=== PATIENT | male | born 1975 | race Caucasian/White ===

== ENCOUNTER 2021-12-31 08:17 | Inpatient (IN) | payer OTHER ==
[2021-12-31] MEDS ORDERED: NITROGLYCERIN SL TABS 0.4 MG TAB SUBLINGUAL STA ×3 (08:40)
[2021-12-31] MEDS ORDERED: ASPIRIN 81 MG PO STA (08:40)
[2021-12-31] MEDS ORDERED: LORazepam 2 MG/ML INJ IV STA (08:41)
--- NOTE | 2021-12-31 08:45 | ED ---
General Adult HPI - General Chief complaint: Chest Pain Stated complaint: Chest discomfort Time Seen by Provider: 12/31/21 08:33 Source: patient, RN notes reviewed Mode of arrival: wheelchair Limitations: no limitations - History of Present Illness Initial comments: Patient is a pleasant 46-year-old male presenting to the emergency department chest discomfort. Onset of symptoms was around a week ago. Patient has had some mild symptoms currently rated 3 or 4/10. Discomfort feels mostly like pressure however has had some mild indigestion earlier. Patient states symptoms are causing anxiety. No associated dyspnea. No diaphoresis. No nausea vom iting. No history of similar symptoms previously. Patient's father does have history of heart disease however was not at a young age. Patient does have history of [place] HFR. Patient takes aspirin and folic acid for this. No calf pain or leg swelling. No radiation of symptoms. - Related Data Home Medications Medication Instructions Recorded Confirmed Aspirin EC [Ecotrin Low Dose] 162 mg PO DAILY 12/31/21 12/31/21 Folic Acid 0.8 mg PO DAILY 12/31/21 12/31/21 Allergies Allergy/AdvReac Type Severity Reaction Status Date / Time Penicillins Allergy Unknown Verified 12/31/21 09:26 Childhood Review of Systems ROS Statement: Those systems with pertinent positive or pertinent negative responses have been documented in the HPI. ROS Other: All systems not noted in ROS Statement are negative. Constitutional: Denies: fever Eyes: Denies: eye pain ENT: Denies: ear pain Respiratory: Denies: cough Cardiovascular: Reports: as per HPI, chest pain Endocrine: Denies: fatigue Gastrointestinal: Denies: abdominal pain Genitourinary: Denies: dysuria Musculoskeletal: Denies: back pain Skin: Denies: rash Neurological: Denies: weakness Past Medical History Past Medical History: No Reported History History of Any Multi-Drug Resistant Organisms: None Reported Past Surgical History: No Surgical Hx Reported Past Psychological History: No Psychological Hx Reported Smoking Status: Current some day smoker Past Alcohol Use History: Occasional Past Drug Use History: Marijuana General Exam Limitations: no limitations General appearance: alert, in no apparent distress Head exam: Present: normocephalic Eye exam: Present: normal appearance Neck exam: Present: normal inspection Respiratory exam: Present: normal lung sounds bilaterally. Absent: chest wall tenderness Cardiovascular Exam: Present: regular rate, normal rhythm Expanded Peripheral pulses: 2+: Radial (R), Radial (L), Posterior Tibialis (R), Posterior Tibialis (L) GI/Abdominal exam: Present: soft. Absent: tenderness Extremities exam: Present: normal inspection. Absent: pedal edema, calf tenderness Neurological exam: Present: alert Psychiatric exam: Present: normal affect, normal mood Skin exam: Present: normal color Course Vital Signs 12/31/21 12/31/21 12/31/21 08:20 08:54 09:36 Temperature 98.6 F Pulse Rate 87 96 87 Respiratory 18 18 18 Rate Blood Pressure 251/144 188/124 185/122 O2 Sat by Pulse 99 96 99 Oximetry - Reevaluation(s) Reevaluation #1: 12/31/21 09:57 Patient reevaluated and resting comfortably in bed, symptoms minimal at this time. Patient and family updated on results and plan. Blood pressure has slightly improved but will need further management. Case discussed with cardiology, Dr. Gibbons. [facility] physician group has been paged for admission. 12/31/21 09:59 Case was discussed with Dr. Dykes, who will admit EKG Findings - EKG Comments: EKG Findings:: Normal sinus rhythm with a rate of 90. NC 170. QRS 76. QT 338. QTC 413. Normal axis. Q waves V1 and V2. No acute ST change. Medical Decision Making - Lab Data Result diagrams: 12/31/21 08:45 12/31/21 08:45 Lab Results 12/31/21 12/31/21 12/31/21 Range/Units 08:45 08:45 08:45 WBC 7.4 (3.8-10.6) k/uL RBC 5.35 (4.30-5.90) m/uL Hgb 16.6 (13.0-17.5) gm/dL Hct 48.2 (39.0-53.0) % MCV 90.0 (80.0-100.0) fL MCH 31.1 (25.0-35.0) pg MCHC 34.6 (31.0-37.0) g/dL RDW 13.9 (11.5-15.5) % Plt Count 148 L (150-450) k/uL MPV 8.5 Neutrophils % 76 % Lymphocytes % 15 % Monocytes % 5 % Eosinophils % 2 % Basophils % 0 % Neutrophils # 5.6 (1.3-7.7) k/uL Lymphocytes # 1.1 (1.0-4.8) k/uL Monocytes # 0.4 (0-1.0) k/uL Eosinophils # 0.1 (0-0.7) k/uL Basophils # 0.0 (0-0.2) k/uL PT 10.7 (9.0-12.0) sec INR 1.0 (<1.2) APTT 25.1 (22.0-30.0) sec Sodium 139 (137-145) mmol/L Potassium 4.2 (3.5-5.1) mmol/L Chloride 107 (98-107) mmol/L Carbon Dioxide 24 (22-30) mmol/L Anion Gap 8 mmol/L BUN 17 (9-20) mg/dL Creatinine 1.04 (0.66-1.25) mg/dL Est GFR (CKD-EPI)AfAm >90 (>60 ml/min/1.73 sqM) Est GFR (CKD-EPI)NonAf 87 (>60 ml/min/1.73 sqM) Glucose 110 H (74-99) mg/dL Calcium 9.3 (8.4-10.2) mg/dL Magnesium 2.0 (1.6-2.3) mg/dL Total Bilirubin 0.7 (0.2-1.3) mg/dL AST 41 (17-59) U/L ALT 35 (4-49) U/L Alkaline Phosphatase 69 (38-126) U/L Troponin I (0.000-0.034) ng/mL Total Protein 8.0 (6.3-8.2) g/dL Albumin 4.8 (3.5-5.0) g/dL 12/31/21 Range/Units 08:45 WBC (3.8-10.6) k/uL RBC (4.30-5.90) m/uL Hgb (13.0-17.5) gm/dL Hct (39.0-53.0) % MCV (80.0-100.0) fL MCH (25.0-35.0) pg MCHC (31.0-37.0) g/dL RDW (11.5-15.5) % Plt Count (150-450) k/uL MPV Neutrophils % % Lymphocytes % % Monocytes % % Eosinophils % % Basophils % % Neutrophils # (1.3-7.7) k/uL Lymphocytes # (1.0-4.8) k/uL Monocytes # (0-1.0) k/uL Eosinophils # (0-0.7) k/uL Basophils # (0-0.2) k/uL PT (9.0-12.0) sec INR (<1.2) APTT (22.0-30.0) sec Sodium (137-145) mmol/L Potassium (3.5-5.1) mmol/L Chloride (98-107) mmol/L Carbon Dioxide (22-30) mmol/L Anion Gap mmol/L BUN (9-20) mg/dL Creatinine (0.66-1.25) mg/dL Est GFR (CKD-EPI)AfAm (>60 ml/min/1.73 sqM) Est GFR (CKD-EPI)NonAf (>60 ml/min/1.73 sqM) Glucose (74-99) mg/dL Calcium (8.4-10.2) mg/dL Magnesium (1.6-2.3) mg/dL Total Bilirubin (0.2-1.3) mg/dL AST (17-59) U/L ALT (4-49) U/L Alkaline Phosphatase (38-126) U/L Troponin I 0.524 H* (0.000-0.034) ng/mL Total Protein (6.3-8.2) g/dL Albumin (3.5-5.0) g/dL - Radiology Data Radiology results: report reviewed (Computed tomography scan of the chest reveals no acute airmail) Critical Care Time Critical Care Time: Yes Total Critical Care Time: 33 Disposition Clinical Impression: Acute non-ST elevation myocardial infarction (NSTEMI), Hypertensive emergency Disposition: ADMITTED IP TO THIS HOSP Condition: Serious Is patient prescribed a controlled substance at d/c from ED?: No Referrals: None,Stated [Primary Care Provider] - 1-2 days Decision Time: 09:58
[2021-12-31 09:09] LABS: Basophils % (A) 0 %; Eosinophils # (A) 0.1 k/uL (0-0.7); Eosinophils % (A) 2 %; HCT 48.2 % (39.0-53.0); HGB 16.6 gm/dL (13.0-17.5); Lymphocytes # (A) 1.1 k/uL (1.0-4.8); Lymphocytes % (A) 15 %; MCH 31.1 pg (25.0-35.0); MCHC 34.6 g/dL (31.0-37.0); Mean Platelet Volume 8.5; Monocytes # (A) 0.4 k/uL (0-1.0); Monocytes % (A) 5 %; Neutrophils # (A) 5.6 k/uL (1.3-7.7); Neutrophils % (A) 76 %; Platelet Count 148 k/uL (150-450); RBC 5.35 m/uL (4.30-5.90); RDW 13.9 % (11.5-15.5); WBC 7.4 k/uL (3.8-10.6)
--- NOTE | 2021-12-31 09:16 | CT ---
EXAMINATION TYPE: CT angio chest DATE OF EXAM: 12/31/2021 COMPARISON: None HISTORY: chest discomfort CT DLP: 561 mGycm CONTRAST: CT chest with contrast and 3D reconstruction with MIP imaging is performed with IV Contrast, patient injected with 80 mL of Isovue 370. Contrast-enhanced CT of the chest was performed through the course of the pulmonary arteries with merly g and mediastinal window settings submitted. 3D reconstruction with MIP imaging was also performed. PULMONARY ARTERIES: The pulmonary arteries and their major tributaries are patent. I do not see taj dence for sizable filling defect to suggest pulmonary embolic process. LUNGS: The lungs are clear and free of infiltrate. No evidence for atelectasis. No pulmonary nodule or mass is detected. No pleural effusion. MEDIASTINUM: Thoracic aorta is of normal caliber,however, evaluation is limited given timing of the contrast bolus. If there is concern for thoracic aortic pathology consider SUSIE. Correlate clinicall y . The heart is not enlarged. No evidence for mediastinal mass. No mediastinal lymph nodes greater than 1cm. HILAR STRUCTURES: No evidence for mass. No hilar lymph nodes greater than 1 cm. UPPER ABDOMEN: No significant abnormality is seen. IMPRESSION: 1. No evidence for Pulmonary embolism at this time.
[2021-12-31 09:18] LABS: Partial Thromboplastin Time 25.1 sec (22.0-30.0); Prothrombin Time 10.7 sec (9.0-12.0)
[2021-12-31 09:23] LABS: ALT 35 U/L (4-49); AST 41 U/L (17-59); African American GFR (CKD) >90 (>60 ml/min/1.73 sqM); Albumin 4.8 g/dL (3.5-5.0); Alkaline Phosphatase 69 U/L (38-126); Anion Gap 8 mmol/L; Blood Urea Nitrogen 17 mg/dL (9-20); Calcium 9.3 mg/dL (8.4-10.2); Carbon Dioxide 24 mmol/L (22-30); Chloride 107 mmol/L (98-107); Glucose 110 mg/dL (74-99); Non-African American GFR(CKD) 87 (>60 ml/min/1.73 sqM); Potassium 4.2 mmol/L (3.5-5.1); Sodium 139 mmol/L (137-145); Total Bilirubin 0.7 mg/dL (0.2-1.3)
[2021-12-31] MEDS ORDERED: LABETALOL 5 MG/ML VIAL MDV IVP STA (09:40)
[2021-12-31] MEDS ORDERED: NITROGLYCERIN OINT 1 INCH/GM PACKET TOPICAL STA (09:41)
[2021-12-31] MEDS ORDERED: HEPARIN SODIUM 1,000 UN/ML (10ML VL) IV PRN (09:53)
[2021-12-31] MEDS ORDERED: HEPARIN SODIUM 1,000 UN/ML (10ML VL) IV ONE (09:53)
[2021-12-31] MEDS ORDERED: NITROGLYCERIN SL TABS 0.4 MG TAB SUBLINGUAL PRN (10:00)
[2021-12-31] MEDS: HEPARIN SOD,PORK IN 0.45% NACL 25,000 UNIT in 0.45% NACL 1 250ML.BAG IV SCH (10:12)
[2021-12-31] MEDS: SODIUM CHLORIDE 0.9% 1,000 ML IV SCH ×2 (10:19→22:51)
[2021-12-31] MEDS: carvediloL 12.5 MG TAB PO SCH ×2 (10:25→23:01)
[2021-12-31] MEDS: lisinopriL 10 MG TAB PO SCH (10:25)
--- NOTE | 2021-12-31 12:05 | P.HPIM ---
History of Present Illness H&P Date: 12/31/21 Chief Complaint: chest pain 46 year old man with likely undiagnosed HTN, current cigar smoker, alcohol abuse, who does not follow with physician, and with FHx of CAD presented with chest pressure. He says symptoms started 7 days ago with tingling in his chest, and these symptoms progressed gradually over the last week. He notes that his birthday was two days ago and he and his friends had a heavy night of drinking over both days of the weekend. This morning he notes that the symptoms in the chest have become very prominent and will not go away, describing them as an intense burning. They are sometimes made worse by head movements. He has stopped working out over the last week due to these symptoms. He denies f/c, n/v/c/d, abd pain, palps, syncope, dysuria, dyschezia, numbness/weakness, dyspnea, orthopnea, LE edema, angina. In the ER he is noted to be in hypertensive urgency with pressures peaking at 241/141, this came down with IV labetalol, nitro sublingual. CBC is unremarkable but for a borderline low PLT count. Chemistries/LFTs/Coags are unremarkable. Troponin initial was 0.524. EKG demonstrates NSR with TWI in inferior leads. Chest CTA was negative for PE. Review of Systems All Systems reviewed and pertinent positives and negatives noted in HPI, all other symptoms are negative Past Medical History Past Medical History: No Reported History History of Any Multi-Drug Resistant Organisms: None Reported Past Surgical History: No Surgical Hx Reported Past Psychological History: No Psychological Hx Reported Smoking Status: Current some day smoker Past Alcohol Use History: Occasional Past Drug Use History: Marijuana Medications and Allergies Home Medications Medication Instructions Recorded Confirmed Type Aspirin EC [Ecotrin Low Dose] 162 mg PO DAILY 12/31/21 12/31/21 History Folic Acid 0.8 mg PO DAILY 12/31/21 12/31/21 History Allergies Allergy/AdvReac Type Severity Reaction Status Date / Time Penicillins Allergy Unknown Verified 12/31/21 09:26 Childhood Physical Exam Osteopathic Statement: *. No significant issues noted on an osteopathic structural exam other than those noted in the History and Physical/Consult. Vitals: Vital Signs Temp Pulse Resp BP Pulse Ox 12/31/21 11:11 75 20 145/100 95 02/07/22 10:14 74 20 180/116 96 12/31/21 09:36 87 18 185/122 99 12/31/21 08:54 96 18 188/124 96 12/31/21 08:20 98.6 F 87 18 251/144 99 Intake and Output 12/30/21 12/31/21 12/31/21 22:59 06:59 14:59 Other: Weight 102.058 kg Gen: awake, alert HEENT: normocephalic, atraumatic, good hearing acuity, moist mucous membranes Resp: good air exchange, breathing comfortably with no accessory muscle use, clear to auscultation bilaterally CVS: good distal perfusion x 4, regular rate and rhythm, positive S4 GI: soft, NTTP, ND, : no SPT, no CVAT, corrales catheter not present MSK: no pitting edema, no clubbing Neuro: non-focal, moving all extremities Psych: cooperative, euthymic mood Results CBC & Chem 7: 12/31/21 08:45 12/31/21 08:45 Labs: Abnormal Lab Results - Last 24 Hours (Table) 12/31/21 12/31/21 12/31/21 Range/Units 08:45 08:45 08:45 Plt Count 148 L (150-450) k/uL Glucose 110 H (74-99) mg/dL Troponin I 0.524 H* (0.000-0.034) ng/mL Assessment and Plan Assessment: Hypertensive urgency Elevated troponin Chest pain -Admit to inpatient, telemetry -Cardiology consult -Aspirin, statin -Heparin drip -Started on Coreg, lisinopril -Nitro when necessary -Hydralazine when necessary for blood pressure -Nothing by mouth midnight for likely heart catheterization -Trend troponins -Echocardiogram MTHFR Carrier ETOH Abuse Nicotine Use -Doubled home aspirin dose from 162-325 -Continue home folic acid -EtOH cessation counseling -Nicotine cessation counseling -Offer nicotine patch if requested Patient is a full code DVT prophylaxis covered with therapeutic heparin
--- NOTE | 2021-12-31 12:14 | P.CRDCN ---
History of Present Illness History of present illness: HISTORY OF PRESENTING ILLNESS This is a pleasant 46-year-old male with with past medical history of MTHFR. 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 We have been asked to see in consultation f or chest pain. Patient presents emergency department with left-sided chest discomfort for about one week. Patient describes the discomfort as heaviness. Located in the left side of his chest. It is nonradiating. He has it with activity and at rest. It is not specifically exertional. Over the past week she's been noticing his chest pain increasing in frequency. It is constant. Associated symptoms include shortness of breath and palpitations. He does endorse some diaphoresis but was not sure if this was related to his chest pain. He states he felt as if his heart was beating out of his chest. He did have some aggravating pain with movement. He denies any specific alleviating factors. He denies nausea, vomiting, diaphoresis, lightheadedness, dizziness, syncope or near syncope. He denies any symptoms of orthopnea or PND. He denies any history of NC, stroke, CAD, diabetes, hyperlipidemia. He states he has been told he had high blood pressure in the past but was not on any medications. He does not regularly check his blood pressure at home. He does not follow with a primary care provider. She denies any cigarette smoking. He does occasionally smoke cigars. He does drink alcohol sometimes 2-3 daily. He does occasionally smoke marijuana. Family history includes his father had an NC in his 60s with stent placement. On admission patient's blood pressure was significantly elevated to 251/144, heart rate in the 80s DIAGNOSTICS EKG reveals sinus rhythm, heart rate 90, T wave inversions in lead III, no acute ST-T wave abnormalities Telemetry tracings indicate sinus mechanism, heart rate 70s90s. Chest CT revealed no evidence of pulmonary embolism Laboratory reviewed, initial troponin 0.52, sodium 139, potassium 4.2, BUN 17, serum creatinine 1.0 WBC 7.4, hemoglobin 16.6, platelets 148, Current home medications include folic acid 0.8 mg daily, aspirin 162 mg daily. REVIEW OF SYSTEMS At the time of my exam: CONSTITUTIONAL: Denies fever or chills. CARDIOVASCULAR: Reports chest pain, shortness of breath, denies orthopnea, PND or palpitations. RESPIRATORY: Denies cough. GASTROINTESTINAL: Denies abdominal pain, diarrhea, constipation, nausea or vomiting. MUSCULOSKELETAL: Denies myalgias. NEUROLOGIC: Denies numbness, tingling, headache or weakness. ENDOCRINE: Denies fatigue, weight change, polydipsia or polyurina. GENITOURINARY: Denies burning, hematuria or urgency with micturation. HEMATOLOGIC: Denies history of anemia or bleeding. PHYSICAL EXAMINATION Blood pressure 180/116, heart rate 74, afebrile, saturations 96% on room air CONSTITUTIONAL: No apparent distress. HEENT: Head is normocephalic. Pupils are equal, round. Sclerae anicteric. Mucous membranes of the mouth are moist. No JVD. No carotid bruit. CHEST EXAMINATION: Lungs are clear to auscultation. No chest wall tenderness is noted on palpation or with deep breathing. HEART EXAMINATION: Regular rate and rhythm. S1, S2 heard. No murmurs, gallops or rub. ABDOMEN: Soft, nontender. Positive bowel sounds. EXTREMITIES: 2+ peripheral pulses, no lower extremity edema and no calf tenderness. SKIN: Warm, dry NEUROLOGIC EXAMINATION: Patient is awake, alert and oriented x3. ASSESSMENT Chest pain, elevated troponin, rule out NSTEMI Hypertensive Emergency History of MTHFR PLAN Trend troponins Repeat EKG Keep NPO Obtain 2D echocardiogram and doppler study to assess cardiac structure and function. Continue aspirin, statin Continue IV heparin drip Lisinopril 10mg daily and carvedilol 12.5 mg twice a day was started Lipid Panel Continue cardiac telemetry Smoking cessation discussed and highly recommended. Further recommendations based on clinical course Thank you kindly for this consultation. Nurse practitioner note has been reviewed by physician. Signing provider agrees with the documented findings, assessment, and plan of care. Past Medical History Past Medical History: No Reported History History of Any Multi-Drug Resistant Organisms: None Reported Past Surgical History: No Surgical Hx Reported Past Psychological History: No Psychological Hx Reported Smoking Status: Current some day smoker Past Alcohol Use History: Occasional Past Drug Use History: Marijuana Medications and Allergies Home Medications Medication Instructions Recorded Confirmed Type Aspirin EC [Ecotrin Low Dose] 162 mg PO DAILY 12/31/21 12/31/21 History Folic Acid 0.8 mg PO DAILY 12/31/21 12/31/21 History Allergies Allergy/AdvReac Type Severity Reaction Status Date / Time Penicillins Allergy Unknown Verified 12/31/21 09:26 Childhood Physical Exam Vitals: Vital Signs Temp Pulse Resp BP Pulse Ox 12/31/21 10:14 74 20 180/116 96 12/31/21 09:36 87 18 185/122 99 12/31/21 08:54 96 18 188/124 96 12/31/21 08:20 98.6 F 87 18 251/144 99 Intake and Output 12/30/21 12/31/21 12/31/21 22:59 06:59 14:59 Other: Weight 102.058 kg Results 12/31/21 08:45 12/31/21 08:45 Cardiac Enzymes 12/31/21 12/31/21 Range/Units 08:45 08:45 AST 41 (17-59) U/L Troponin I 0.524 H* (0.000-0.034) ng/mL Coagulation 12/31/21 Range/Units 08:45 PT 10.7 (9.0-12.0) sec APTT 25.1 (22.0-30.0) sec CBC 12/31/21 Range/Units 08:45 WBC 7.4 (3.8-10.6) k/uL RBC 5.35 (4.30-5.90) m/uL Hgb 16.6 (13.0-17.5) gm/dL Hct 48.2 (39.0-53.0) % Plt Count 148 L (150-450) k/uL Comprehensive Metabolic Panel 12/31/21 Range/Units 08:45 Sodium 139 (137-145) mmol/L Potassium 4.2 (3.5-5.1) mmol/L Chloride 107 (98-107) mmol/L Carbon Dioxide 24 (22-30) mmol/L BUN 17 (9-20) mg/dL Creatinine 1.04 (0.66-1.25) mg/dL Glucose 110 H (74-99) mg/dL Calcium 9.3 (8.4-10.2) mg/dL AST 41 (17-59) U/L ALT 35 (4-49) U/L Alkaline Phosphatase 69 (38-126) U/L Total Protein 8.0 (6.3-8.2) g/dL Albumin 4.8 (3.5-5.0) g/dL Current Medications Generic Name Dose Route Start Last Admin Trade Name Freq PRN Reason Stop Dose Admin Aspirin 81 mg 01/01/22 09:00 Aspirin 81 Mg PO DAILY [facility] Atorvastatin Calcium 80 mg 12/31/21 21:00 Atorvastatin 80 Mg Tab PO HS [facility] Carvedilol 12.5 mg 12/31/21 10:15 12/31/21 10:25 Carvedilol 12.5 Mg Tab PO 12.5 mg AC-BID ENRIQUE Administration Folic Acid 1 mg 01/01/22 09:00 Folic Acid 1 Mg Tab PO DAILY [facility] Heparin Sodium (Porcine) 0 unit 12/31/21 09:53 Heparin Sodium 1,000 Un/Ml (10ml Vl) IV PER PROTOCOL PRN Low PTT Protocol Hydralazine HCl 25 mg 12/31/21 10:02 Hydralazine Hcl 25 Mg Tab PO QID PRN Blood Pressure - High Heparin Sodium/Sodium Chloride 250 mls @ 10.002 mls/hr 12/31/21 10:00 12/31/21 10:12 25,000 unit/ Sodium Chloride IV 9.8 units/kg/hr .Q24H ENRIQUE 10.002 mls/hr Administration Protocol 9.8 UNITS/KG/HR Sodium Chloride 1,000 mls @ 100 mls/hr 12/31/21 10:00 12/31/21 10:19 Saline 0.9% IV 100 mls/hr .Q10H ENRIQUE Administration Lisinopril 10 mg 12/31/21 10:15 12/31/21 10:25 Lisinopril 10 Mg Tab PO 10 mg DAILY ENRIQUE Administration Nitroglycerin 0.4 mg 12/31/21 10:00 Nitroglycerin Sl Tabs 0.4 Mg Tab SUBLINGUAL Q5M PRN Chest Pain Intake and Output 12/30/21 12/31/21 12/31/21 22:59 06:59 14:59 Other: Weight 102.058 kg Patient Weight 01/01/22 06:59 Weight 102.058 kg 12/31/21 08:45 12/31/21 08:45
[2021-12-31] MEDS: hydrALAZINE HCL 25 MG TAB PO PRN (12:55)
[2021-12-31] MEDS ORDERED: ALPRAZolam 0.25 MG TAB PO PRN (13:43)
[2021-12-31] MEDS: SODIUM CHLORIDE 0.9% 1,000 ML in EMPTY BAG 1 BAG IV SCH (23:01)
[2021-12-31] MEDS: ATORVASTATIN 80 MG TAB PO SCH (23:01)
[2022-01-01] MEDS: HEPARIN SOD,PORK IN 0.45% NACL 25,000 UNIT in 0.45% NACL 1 250ML.BAG IV SCH (02:50)
[2022-01-01 05:58] LABS: Glucose,Whole Blood 108 mg/dL (75-99)
[2022-01-01] MEDS: carvediloL 12.5 MG TAB PO SCH ×2 (05:58→17:11)
[2022-01-01] MEDS: FOLIC ACID 1 MG TAB PO SCH (05:58)
[2022-01-01] MEDS: lisinopriL 10 MG TAB PO SCH (05:58)
[2022-01-01] MEDS: SODIUM CHLORIDE 0.9% 1,000 ML IV SCH ×2 (05:58→16:19)
[2022-01-01] MEDS ORDERED: HEPARIN SODIUM,PORCINE 10,000 UNIT in SODIUM CHLORIDE 0.9% 1,000 ML IRRIGATION PRN (07:00)
[2022-01-01] MEDS ORDERED: HEPARIN SODIUM,PORCINE 2,500 UNIT in SODIUM CHLORIDE 0.9% 250 ML IRRIGATION PRN (07:00)
[2022-01-01 08:31] LABS: African American GFR (CKD) >90 (>60 ml/min/1.73 sqM); Anion Gap 5 mmol/L; Blood Urea Nitrogen 13 mg/dL (9-20); Calcium 8.7 mg/dL (8.4-10.2); Carbon Dioxide 24 mmol/L (22-30); Chloride 109 mmol/L (98-107); Glucose 103 mg/dL (74-99); Magnesium 2.1 mg/dL (1.6-2.3); Non-African American GFR(CKD) >90 (>60 ml/min/1.73 sqM); Potassium 4.1 mmol/L (3.5-5.1); Sodium 138 mmol/L (137-145)
[2022-01-01 08:34] LABS: Basophils % (A) 0 %; Eosinophils # (A) 0.1 k/uL (0-0.7); Eosinophils % (A) 2 %; HCT 43.9 % (39.0-53.0); HGB 15.2 gm/dL (13.0-17.5); Lymphocytes # (A) 1.1 k/uL (1.0-4.8); Lymphocytes % (A) 18 %; MCH 31.1 pg (25.0-35.0); MCHC 34.6 g/dL (31.0-37.0); MCV 90.1 fL (80.0-100.0); Mean Platelet Volume 8.7; Monocytes # (A) 0.4 k/uL (0-1.0); Monocytes % (A) 6 %; Neutrophils # (A) 4.4 k/uL (1.3-7.7); Neutrophils % (A) 72 %; Platelet Count 130 k/uL (150-450); RBC 4.87 m/uL (4.30-5.90); RDW 13.9 % (11.5-15.5); WBC 6.1 k/uL (3.8-10.6)
[2022-01-01 08:48] LABS: Prothrombin Time 10.9 sec (9.0-12.0)
--- NOTE | 2022-01-01 08:48 | P.PN ---
Subjective Progress Note Date: 01/01/22 Plan is for LHC today. Chest sensation still present, but mildly improved. BPs still high, but improved, will titrate BP meds following LHC. Objective - Vital Signs Vital signs: Vital Signs Temp 98 F 01/01/22 08:00 Pulse 63 01/01/22 08:00 Resp 17 01/01/22 08:00 BP 179/103 01/01/22 08:00 Pulse Ox 97 01/01/22 08:00 Intake & Output 12/31/21 01/01/22 01/01/22 18:59 06:59 18:59 Intake Total 61.846 376.508 Balance 61.846 376.508 Weight 102.058 kg 105.3 kg Intake: Intake, IV Titration 61.846 136.508 Amount Heparin Sod,Pork in 0.45% 61.846 136.508 NaCl 25,000 unit In 0.45 % NaCl 1 250ml.bag @ 9.8 UNITS/KG/HR 10.002 mls/hr IV .Q24H [facility] Rx#: [id number] Oral 240 Other: Voiding Method Toilet # Voids 1 - Exam Gen: awake, alert HEENT: normocephalic, atraumatic, good hearing acuity, moist mucous membranes Resp: good air exchange, breathing comfortably with no accessory muscle use, clear to auscultation bilaterally CVS: good distal perfusion x 4, regular rate and rhythm, positive S4 GI: soft, NTTP, ND, : no SPT, no CVAT, corrales catheter not present MSK: no pitting edema, no clubbing Neuro: non-focal, moving all extremities Psych: cooperative, euthymic mood - Labs CBC & Chem 7: 01/01/22 07:28 01/01/22 07:28 Labs: Abnormal Lab Results - Last 24 Hours (Table) 12/31/21 12/31/21 12/31/21 Range/Units 08:45 08:45 08:45 Plt Count 148 L (150-450) k/uL APTT (22.0-30.0) sec Chloride (98-107) mmol/L Glucose 110 H (74-99) mg/dL POC Glucose (mg/dL) (75-99) mg/dL Troponin I 0.524 H* (0.000-0.034) ng/mL 02/07/22 02/07/22 02/07/22 Range/Units 11:40 15:25 15:25 Plt Count (150-450) k/uL APTT 33.1 H (22.0-30.0) sec Chloride (98-107) mmol/L Glucose (74-99) mg/dL POC Glucose (mg/dL) (75-99) mg/dL Troponin I 0.631 H* 0.587 H* (0.000-0.034) ng/mL 12/31/21 01/01/22 01/01/22 Range/Units 22:17 05:56 07:28 Plt Count (150-450) k/uL APTT 44.7 H (22.0-30.0) sec Chloride 109 H (98-107) mmol/L Glucose 103 H (74-99) mg/dL POC Glucose (mg/dL) 108 H (75-99) mg/dL Troponin I (0.000-0.034) ng/mL 01/01/22 Range/Units 07:28 Plt Count 130 L (150-450) k/uL APTT (22.0-30.0) sec Chloride (98-107) mmol/L Glucose (74-99) mg/dL POC Glucose (mg/dL) (75-99) mg/dL Troponin I (0.000-0.034) ng/mL Assessment and Plan Assessment: Hypertensive urgency Elevated troponin Chest pain -Admit to inpatient, telemetry -Cardiology consult -Aspirin, statin -Heparin drip -Started on Coreg, lisinopril -Nitro when necessary -Hydralazine when necessary for blood pressure -[facility] 12/31, pending results -Trend troponins, peaked at 0.63 -Echocardiogram, pending results MTHFR Carrier ETOH Abuse Nicotine Use -Doubled home aspirin dose from 162-325 -Continue home folic acid -EtOH cessation counseling -Nicotine cessation counseling -Offer nicotine patch if requested Patient is a full code DVT prophylaxis covered with therapeutic heparin
[2022-01-01] MEDS ORDERED: ASPIRIN 81 MG PO SCH ×2 (09:00)
[2022-01-01] MEDS ORDERED: ASPIRIN 325 MG TAB PO SCH ×2 (09:00)
[2022-01-01] MEDS: SODIUM CHLORIDE 0.9% 1,000 ML in EMPTY BAG 1 BAG IV SCH ×4 (09:26→22:02)
[2022-01-01] MEDS: ALPRAZolam 0.5 MG TAB PO PRN ×2 (09:27→22:52)
[2022-01-01 10:32] LABS: Chol/HDL Ratio 4.84 Ratio; LDL Cholesterol,Calculated 83.1 mg/dL (0.0-131.0)
[2022-01-01] MEDS ORDERED: IV FLUID CONTINUATION 400 ML IV ONE (10:43)
--- NOTE | 2022-01-01 10:52 | ECHOF ---
Referral Reason:nstemi, htn MEASUREMENTS -------- HEIGHT: 180.3 cm WEIGHT: 102.1 kg BP: RVIDd: 2.3 cm (< 3.3) IVSd: 1.7 cm (0.6 - 1.1) LVIDd: 3.1 cm (3.9 - 5.3) LVPWd: 1.8 cm (0.6 - 1.1) IVSs: 2.4 cm LVIDs: 1.9 cm LVPWs: 2.3 cm Ao Diam: 3.4 cm (2.0 - 3.7) AV Cusp: 2.2 cm (1.5 - 2.6) LA Diam: 3.6 cm (2.7 - 3.8) MV EXCURSION: 9.371 mm (> 18.000) MV EF SLOPE: 44 mm/s (70 - 150) EPSS: 0.8 cm MV E Albert: 0.66 m/s MV DecT: 232 ms MV A Albert: 0.62 m/s MV E/A Ratio: 1.05 RAP: 5.00 mmHg RVSP: 16.42 mmHg FINDINGS -------- This was a technically good study. The left ventricular size is normal. There is severe concentric left ventricular hypertrophy. Ove rall left ventricular systolic function is normal with, an EF between 55 - 60 %. The diastolic fill ing pattern is normal for the age of the patient {E/E'}. The right ventricle is normal in size. The left atrial size is normal. Normal LA size by volume 22+/-6 ml/m2. The right atrial size is normal. The aortic valve is trileaflet and appears structurally normal. The mitral valve is normal. There is trace mitral regurgitation. The tricuspid valve appears structurally normal. Trace tricuspid regurgitation present. Right clarice tricular systolic pressure is normal at < 35 mmHg. There is no pulmonic regurgitation present. The aortic root size is normal. Normal inferior vena cava with normal inspiratory collapse consistent with estimated right atrial pre ssure of 5 mmHg. There is no pericardial effusion. CONCLUSIONS -------- 1. The left ventricular size is normal. 2. There is severe concentric left ventricular hypertrophy. 3. Overall left ventricular systolic function is normal with, an EF between 55 - 60 %. 4. The diastolic filling pattern is normal for the age of the patient {E/E'} 5. There is trace mitral regurgitation. 6. Trace tricuspid regurgitation present. 7. There is no pericardial effusion. VICE PROVOST: Jennifer Hemphill RDCS
[2022-01-01] MEDS ORDERED: fentaNYL (PF) 50 MCG/ML 2 ML AMP ONE (11:00)
[2022-01-01] MEDS ORDERED: MIDAZOLAM 2 MG/2 ML VIAL IV ONE ×2 (11:18→12:18)
[2022-01-01] MEDS ORDERED: IV FLUID CONTINUATION 500 ML IV ONE (11:20)
[2022-01-01] MEDS ORDERED: LIDOCAINE 1% INJ 10MG/ML (20 ML MDV) SQ ONE (11:22)
[2022-01-01] MEDS: fentaNYL (PF) 50 MCG/ML 2 ML AMP IV ONE ×2 (11:22→12:15)
[2022-01-01] MEDS ORDERED: HEPARIN SODIUM 1,000 UN/ML (10ML VL) ONE (11:24)
[2022-01-01] MEDS ORDERED: VERAPAMIL SYRINGE (5 MG/10 ML) INTRAARTER ONE (11:26)
[2022-01-01] MEDS ORDERED: TICAGRELOR 90 MG TAB ONE (11:41)
[2022-01-01] MEDS ORDERED: TICAGRELOR 90 MG TAB PO ONE (11:42)
[2022-01-01] MEDS: NITROGLYCERIN 1000MCG/10ML SYRINGE INTRACORON ONE ×3 (11:45→12:42)
[2022-01-01] MEDS ORDERED: IOPAMIDOL-370 125ML BTL INJ ONE (12:12)
[2022-01-01] MEDS ORDERED: IOPAMIDOL-370 100ML BTL INJ ONE ×2 (12:41→12:50)
[2022-01-01] MEDS ORDERED: ATROPINE SULFATE 0.1 MG/ML 10ML SYRINGE IV PRN (13:37)
[2022-01-01] MEDS ORDERED: RX INFO: IV CONTRAST WAS GIVEN 1 EACH MISC MISCELLANE PRN (13:37)
[2022-01-01] MEDS ORDERED: MAG HYDROX/AL HYDROX/SIMETH 30 ML CUP PO PRN (13:37)
[2022-01-01] MEDS: hydrALAZINE HCL 25 MG TAB PO PRN (13:41)
[2022-01-01] MEDS ORDERED: lisinopriL 10 MG TAB PO STA (16:56)
[2022-01-01] MEDS: ATORVASTATIN 80 MG TAB PO SCH (19:45)
--- NOTE | 2022-01-01 21:34 | P.PRCINT ---
Percutaneous Coronary Int. - Percutaneous Coronary Intervention Percutaneous Coronary Intervention: PROCEDURES PERFORMED: Left heart catheterization, bilateral coronary angiography, PCI mid LAD with overlapping 2.5 x 8mm Xience AIXA x 2, iFR LAD, PCI mid to distal circumflex with 2.25 x 18mm Xience AIXA, IVUS LAD INDICATION: NSTEMI HISTORY: Patient is a pleasant 46 year old male who presented with chest pain however also noted have extremely elevated blood pressures and NSTEMI. Some of his chest pain appeared atypical and musculoskeletal however given risk factors, left heart catheterization was recommended. CONSENT:I have discussed the risks, benefits and alternative therapies for the above-mentioned procedure and for both sedation/analgesia as well as necessary blood product administration, if indicated, as they pertain to this patient. The patient has indicated understanding and acceptance of the risks and procedures discussed. PROCEDURE: After the risks, benefits and alternatives of the above mentioned procedure explained in detail with the patient, informed consent was obtained. Patient was taken to the catheterization lab and prepped and draped in usual fashion. 1% lidocaine was used to anesthetize the right radial artery. A 6- Georgian sheath was placed in the right radial artery using modified Seldinger technique. Left coronary angiography was performed with a 5-Georgian JL 3.5 catheter and right coronary angiography was performed with a 5-Georgian JR5 catheter in various views. A 5-Georgian FR5 catheter was inserted into the left ventricle and pressure measurements were obtained. The decision was made to performed iFR of the LAD given an eccentric appearing lesion seen to be worst on the [place] views appearing 90% however in other views appearing relatively mild disease. Heparin was given for an ACT > 250. A 6Fr CLS 3.5 catheter was used to engage the left main. A 0.014 pressure wire was advanced into the left main and normalized. It was then advanced 1-2 cm distal to the mid LAD lesion. Initially iFR extremely abnormal at 0.58 with pullback showing majority of pressure difference at a focal napkin ring lesion just proximal to the 1st large septal. There was drift noted however and therefore the wire was renormalized in the left main and iFR was repeated twice more and noted to continue to be abnormal at 0.89 and 0.85 with pressure difference at the focal lesion. IVUS was performed of the LAD which showed diffuse mixed plaque throughout the mid LAD after the moderate caliber diagonal 1 branch til the distal LAD with majority being positive remodeling and a 80% stenosis at the level of the napkin ring lesion. There was diffuse disease noted more proximal to the lesion however nearest somewhat normal segment appeared to be 2.5 x 2.5mm. PCI was performed of the mid LAD lesion with a 2.5 x 8mm Xience AIXA. There was more proximal disease and therefore additional 2.5 x 8mm Xience AIXA was advanced and deployed overlapping more proximal with the 1st stent. IVUS was again performed which showed excellent stent opposition with stent diameter 2.4 x 2.6mm in diameter and no dissection and continued extensive more distal LAD disease. Pre intervention there was 80% LAD stenosis with DUC 3 flow and post intervention there was 0% stenosis and DUC 3 flow. The iFR wire was removed and final angiograms were performed. Next a 0.014 whisper wire was advanced into the distal circumflex. The lesion was predilated serially with a 1.5 x 12mm and then 2.25 x 15mm balloon. Next a 2.25 x 18mm Xience AIXA was placed in the mid circumflex just distal to a moderate caliber OM1 branch. The wire was removed and final angiograms were performed. Pre intervention there were tandem 90% stenoses and DCU 2 flow and post intervention there was < 10% stenosis with DUC 3 flow and no dissection. The right radial sheath was removed and a TR band was placed with hemostasis achieved. The patient tolerated the procedure well. Patient was transported back to the post catheterization holding area in stable condition. Conscious Sedation: Patient was monitored under the direct supervision of vision of myself for conscious sedation using Versed and fentanyl for a total duration of 90 minutes HEMODYNAMICS: Ao: 154/89 LV: 148/4, LVEDP 21 SELECTIVE CORONARY ARTERIOGRAPHY: LEFT MAIN: The left main is a large caliber vessel which bifurcates into the LAD and circumflex. There is no significant stenosis. LEFT ANTERIOR DESCENDING CORONARY ARTERY: LAD is a large caliber vessel which wraps around to the apex. There is a mid LAD 50% stenosis followed by a more focal eccentric 80% mid LAD lesion after the moderate caliber diagonal 1 branch. Diagonal 1 has mild 20-30% stenosis. The mid to distal LAD has diffuse 30-40% stenosis. LEFT CIRCUMFLEX CORONARY ARTERY: Left circumflex is a moderate caliber vessel without significant stenosis. The circumflex gives off a moderate caliber OM1 without significant disease and then has a a long mid to distal circumflex lesion with tandem 90% stenoses which gives rise to 3 small caliber OM branches. RIGHT CORONARY ARTERY: The right coronary artery is a large caliber vessel which gives off a PDA and PLV branch and is the dominant vessel. There is proximal RCA 20% stenosis. There is proximal PLV 30% stenosis and proximal PDA 30-40% stenosis. FINAL IMPRESSION: 1. CAD as described above with mid LAD 80% stenosis, mid circumflex tandem 90% stenoses, mild disease of the RCA. 2. S/p PCI mid LAD with overlapping 2.5 x 8mm Xience AIXA x 2, iFR LAD, PCI mid to distal circumflex with 2.25 x 18mm Xience AIXA 3. Mildly elevated left sided filling pressures PLAN: 1. Aggressive risk factor modification per most recent ACC/AHA guidelines. 2. Continue dual antiplatelets for 12 months.
[2022-01-01 23:50] VITALS: RESP 16
[2022-01-02] MEDS: SODIUM CHLORIDE 0.9% 1,000 ML IV SCH (01:35)
[2022-01-02] MEDS: SODIUM CHLORIDE 0.9% 1,000 ML in EMPTY BAG 1 BAG IV SCH ×2 (06:15→08:15)
[2022-01-02] MEDS: carvediloL 12.5 MG TAB PO SCH (06:26)
[2022-01-02 08:09] LABS: African American GFR (CKD) >90 (>60 ml/min/1.73 sqM); Anion Gap 5 mmol/L; Blood Urea Nitrogen 13 mg/dL (9-20); Carbon Dioxide 25 mmol/L (22-30); Chloride 108 mmol/L (98-107); Glucose 91 mg/dL (74-99); Non-African American GFR(CKD) >90 (>60 ml/min/1.73 sqM); Potassium 4.2 mmol/L (3.5-5.1); Sodium 138 mmol/L (137-145)
[2022-01-02] MEDS: FOLIC ACID 1 MG TAB PO SCH (08:14)
[2022-01-02] MEDS ORDERED: lisinopriL 20 MG TAB PO SCH (09:00)
[2022-01-02] MEDS ORDERED: TICAGRELOR 90 MG TAB PO SCH (09:00)
[2022-01-02] MEDS ORDERED: ASPIRIN 81 MG PO SCH (09:00)
[2022-01-02 10:37] VITALS: BMI 30.6
[2022-01-02 11:40] VITALS: BP 175/112; PULSE 67; TEMP 97.6
[2022-01-02] MEDS ORDERED: lisinopriL 20 MG TAB PO STA (12:02)
--- NOTE | 2022-01-02 14:41 | P.DS ---
Providers Date of admission: 12/31/21 10:02 Expected date of discharge: 01/02/22 Attending physician: Snehal Dykes MD Consults: 12/31/21 10:00 Consult Physician Urgent Consulting Provider: Jovani Gibbons Consult Reason/Comments: nstemi, hypertensive emergency Do you want consulting provider notified?: Already Contacted Primary care physician: Stated None Hospital Course: 46 year old man with likely undiagnosed HTN, current cigar smoker, alcohol abuse, who does not follow with physician, and with FHx of CAD presented with chest pressure. He says symptoms started 7 days ago with tingling in his chest, and these symptoms progressed gradually over the last week. He notes that his birthday was two days ago and he and his friends had a heavy night of drinking over both days of the weekend. This morning he notes that the symptoms in the chest have become very prominent and will not go away, describing them as an intense burning. They are sometimes made worse by head movements. He has stopped working out over the last week due to these symptoms. He denies f/c, n/v/c/d, abd pain, palps, syncope, dysuria, dyschezia, numbness/weakness, dyspnea, orthopnea, LE edema, angina. In the ER he is noted to be in hypertensive urgency with pressures peaking at 241/141, this came down with IV labetalol, nitro sublingual. CBC is unremarkable but for a borderline low PLT count. Chemistries/LFTs/Coags are unremarkable. Troponin initial was 0.524. EKG demonstrates NSR with TWI in inferior leads. Chest CTA was negative for PE. Detailed problem list: Hypertensive urgency -Increase lisinopril to 40 mg daily -Resume Coreg 12.5 twice daily NSTEMI Chest pain -Status post left heart cath December 01 with stent in LAD and one stent on mid and distal circumflex -Dual antiplatelet therapy for 12 months -Beta blockers and high statins Lipitor 80 mg daily on discharge -Patient was cleared for discharge per cardiology -Echocardiogram showed normal left ventricular size is normal. EF 5560 percent MTHFR Carrier ETOH Abuse Nicotine Use -Doubled home aspirin dose from 162-325 -Continue home folic acid -EtOH cessation counseling -Nicotine cessation counseling -Offer nicotine patch if requested Assessment: Gen: awake, alert HEENT: normocephalic, atraumatic, good hearing acuity, moist mucous membranes Resp: good air exchange, breathing comfortably with no accessory muscle use, clear to auscultation bilaterally CVS: good distal perfusion x 4, regular rate and rhythm, positive S4 GI: soft, NTTP, ND, : no SPT, no CVAT, corrales catheter not present MSK: no pitting edema, no clubbing Neuro: non-focal, moving all extremities Psych: cooperative, euthymic mood Patient Condition at Discharge: Stable Plan - Discharge Summary New Discharge Prescriptions: New Ticagrelor [Brilinta] 90 mg PO BID 30 Days #60 tab lisinopriL [Zestril] 40 mg PO DAILY 30 Days #30 tab Aspirin 81 mg PO DAILY 30 Days #30 carvediloL [Coreg*] 12.5 mg PO AC-BID 30 Days #60 tab Atorvastatin [Lipitor] 80 mg PO HS 30 Days #30 tab Continue Folic Acid 0.8 mg PO DAILY Discontinued Aspirin EC [Ecotrin Low Dose] 162 mg PO DAILY Discharge Medication List Folic Acid 0.8 mg PO DAILY 12/31/21 [History] Ticagrelor [Brilinta] 90 mg PO BID 30 Days #60 tab 01/01/22 [Rx] Aspirin 81 mg PO DAILY 30 Days #30 01/02/22 [Rx] Atorvastatin [Lipitor] 80 mg PO HS 30 Days #30 tab 01/02/22 [Rx] carvediloL [Coreg*] 12.5 mg PO AC-BID 30 Days #60 tab 01/02/22 [Rx] lisinopriL [Zestril] 40 mg PO DAILY 30 Days #30 tab 01/02/22 [Rx] Follow up Appointment(s)/Referral(s): Jovani Gibbons DO [STAFF PHYSICIAN] - 01/11/22 3:00 pm Aravind Guevara MD [STAFF PHYSICIAN] - 1 Week (office is closed-please call to set up an appointment) None,Stated [Primary Care Provider] - 1-2 days Patient Instructions/Handouts: Low Fat Diet (DC), Heart Catheterization (DC) Discharge Disposition: HOME SELF-CARE
--- NOTE | 2022-01-02 15:19 | P.PN ---
Subjective This is a pleasant 46-year-old male with with past medical history of MTHFR. 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 We have been asked to see in consultation for chest pain. Patient presents emergency department with left-sided chest heaviness for about one week. EKG reveals sinus rhythm, heart rate 90, T wave inversions in lead III, no acute ST-T wave abnormalities. Troponin 0.52, 0.6, 0.58. Cardiac catheterization was recommended. Patient underwent left heart catheterization with Dr. Gibbons on 01/01/2022 which revealed coronary artery di sease with mid LAD 80% stenosis, mid circumflex tandem 90% stenoses, mild disease of the RCA. Patient underwent successful PCI mid LAD with overlapping 2.5 x 8mm Xience AIXA x 2, iFR LAD, PCI mid to distal circumflex with 2.25 x 18mm Xience AIXA. 01/02/2022 Patient seen and examined at bedside, no distress. He denies any chest pain shortness of breath. He is ambulating without any difficulty. Vital signs are stable. His blood pressure has improved over the past 24 hours. He is maintaining sinus mechanism heart rate 5860s. He's currently maintained on dual antiplatelet therapy with aspirin and Brilinta, he is also maintained on lisinopril 20 mg daily, carvedilol 12.5 mg twice a day, atorvastatin 80 mg daily. Labs, triglycerides 390, cholesterol 203, LDL 83, VLDL 78, HDL 41, TSH within normal limits Echocardiogram revealed EF 5560 percent PHYSICAL EXAMINATION CONSTITUTIONAL: No apparent distress. HEENT: Neck Supple. No JVD. CHEST EXAMINATION: Lungs are clear to auscultation. No chest wall tenderness is noted on palpation or with deep breathing. HEART EXAMINATION: Regular rate and rhythm. S1, S2 heard. No murmurs, gallops or rub. ABDOMEN: Soft, nontender. Positive bowel sounds. EXTREMITIES: 2+ peripheral pulses, no lower extremity edema and no calf tenderness. SKIN: Cath site clean dry intact 2+ pulses NEUROLOGIC EXAMINATION: Patient is awake, alert and oriented x3. ASSESSMENT NSTEMI s/p PCI to mid LAD and mid to distal circumflex 01/01/2022 Dyslipidemia Hypertensive Emergency History of MTHFR PLAN Increase lisinopril 40 mg daily Continue dual antiplatelet therapy with aspirin and Brilinta, he is also maintained on lisinopril 20 mg daily, carvedilol 12.5 mg twice a day, atorvastatin 80 mg daily. Smoking cessation discussed and highly recommended. From cardiology perspective, patient stable for discharge home. Follow up with Dr. Gibbons outpatient. Patient is an appointment on 01/11/2022 at 3 PM Nurse practitioner note has been reviewed by physician. Signing provider agrees with the documented findings, assessment, and plan of care. Objective - Vital Signs Vital signs: Vital Signs Temp 97.7 F 01/02/22 07:52 Pulse 58 L 01/02/22 08:00 Resp 16 01/02/22 08:00 BP 147/90 01/02/22 07:52 Pulse Ox 97 01/02/22 07:52 Intake & Output 01/01/22 01/02/22 01/02/22 18:59 06:59 18:59 Intake Total 1690 240 Balance 1690 240 Weight 105.3 kg Intake: IV 350 Intake, IV Titration 800 Amount Sodium Chloride 0.9% 1, 800 000 ml @ 100 mls/hr IV . Q10H [facility] Rx#:[id number] Oral 540 240 Other: Voiding Method Toilet Toilet Toilet # Voids 2 2 # Bowel Movements 1 - Labs CBC & Chem 7: 01/01/22 07:28 01/02/22 06:30 Labs: Abnormal Lab Results - Last 24 Hours (Table) 01/02/22 Range/Units 06:30 Chloride 108 H (98-107) mmol/L
[2022-01-03] MEDS ORDERED: lisinopriL 20 MG TAB PO SCH (09:00)
== END 2022-01-02 14:09 | disposition home or self-care (01) | DRG 246 ==
LOC: EC 08:17 → 3SCARD 10:02
PROVIDERS: ADMIT Internal Medicine; ATTEND Internal Medicine
PROC: 4A023N7 Measurement of Cardiac Sampling and Pressure, Left Heart, Percutaneous Approach (ICD-10-PCS; principal; 2022-01-01 12:00)
PROC: 4A033BC Measurement of Arterial Pressure, Coronary, Percutaneous Approach (ICD-10-PCS; principal; 2022-01-01 12:00)
PROC: B2111ZZ Fluoroscopy of Multiple Coronary Arteries using Low Osmolar Contrast (ICD-10-PCS; principal; 2022-01-01 12:00)
PROC: B240ZZ3 Ultrasonography of Single Coronary Artery, Intravascular (ICD-10-PCS; principal; 2022-01-01 12:00)
PROC: 027136Z Dilation of Coronary Artery, Two Arteries with Three Drug-eluting Intraluminal Devices, Percutaneous Approach (ICD-10-PCS; principal; 2022-01-01 12:00)
DX: I16.1 Hypertensive emergency (principal); I21.4 Non-ST elevation (NSTEMI) myocardial infarction; E78.5 Hyperlipidemia, unspecified; Z20.822 Contact with and (suspected) exposure to COVID-19; I10 Essential (primary) hypertension; I25.10 Atherosclerotic heart disease of native coronary artery without angina pectoris; F10.10 Alcohol abuse, uncomplicated; F41.9 Anxiety disorder, unspecified; F17.290 Nicotine dependence, other tobacco product, uncomplicated; Z71.6 Tobacco abuse counseling; Z79.82 Long term (current) use of aspirin; Z79.899 Other long term (current) drug therapy; Z14.8 Genetic carrier of other disease; Z71.41 Alcohol abuse counseling and surveillance of alcoholic; Z88.0 Allergy status to penicillin; Z82.49 Family history of ischemic heart disease and other diseases of the circulatory system
CPT/HCPCS: 36415; 71275; 80048; 80053; 80061; 83036; 83735; 84443; 84484; 85025; 85610; 85730; 87635; 92978; 93005; 93306; 93458; 93571; 96374; 96375; 99291

== ENCOUNTER 2022-03-23 06:23 | Observation (INO) | payer OTHER ==
[2022-03-23 07:16] LABS: Partial Thromboplastin Time 25.8 sec (22.0-30.0); Prothrombin Time 10.9 sec (9.0-12.0)
[2022-03-23 07:23] LABS: African American GFR (CKD) >90 (>60 ml/min/1.73 sqM); Anion Gap 11 mmol/L; Blood Urea Nitrogen 19 mg/dL (9-20); Calcium 9.6 mg/dL (8.4-10.2); Carbon Dioxide 22 mmol/L (22-30); Chloride 106 mmol/L (98-107); Glucose 114 mg/dL (74-99); Lipase 230 U/L (23-300); Non-African American GFR(CKD) 86 (>60 ml/min/1.73 sqM); Potassium 4.1 mmol/L (3.5-5.1); Sodium 139 mmol/L (137-145)
[2022-03-23] MEDS ORDERED: NITROGLYCERIN SL TABS 0.4 MG TAB SUBLINGUAL STA (07:34)
[2022-03-23] MEDS ORDERED: ASPIRIN 81 MG PO STA (07:34)
--- NOTE | 2022-03-23 07:35 | ED ---
General Adult HPI - General Chief complaint: Chest Pain Stated complaint: Chest Pressure Time Seen by Provider: 03/23/22 06:57 Source: patient Mode of arrival: ambulatory Limitations: no limitations - History of Present Illness Initial comments: Dictation was produced using [employer] dictation software. please excuse any grammatical, word or spelling errors. Chief Complaint: 46-year-old male past medical history coronary artery disease presents to the emergency room for chest pain History of Present Illness: Patient is a 46-year-old male has past medical history of coronary artery disease. Earlier this year patient had 3 stents p laced by Dr. Gibbons. Over the last 36 hours patient has been having dull intermittent chest pain episodes that are shifting from [id number]. States that the pain is nonradiating down extremity. Does not radiate to the jaw. No associated diaphoresis or nausea. States that when he was diagnosed with coronary artery disease that his symptoms were also very mild. Patient states he has very mild symptoms at bedside. No associated shortness of breath. The ROS documented in this emergency department record has been reviewed and confirmed by me. Those systems with pertinent positive or negative responses have been documented in the HPI. All other systems are other negative and/or noncontributory. PHYSICAL EXAM: General Impression: Alert and oriented x3, not in acute distress HEENT: Normocephalic atraumatic, extra-ocular movements intact, pupils equal and reactive to light bilaterally, mucous membranes moist. Cardiovascular: Heart regular rate and rhythm Chest: Able to complete full sentences, no retractions, no tachypnea Abdomen: abdomen soft, non-tender, non-distended, no organomegaly Musculoskeletal: Pulses present and equal in all extremities, no peripheral edema Motor: no focal deficits noted Neurological: CN II-XII grossly intact, no focal motor or sensory deficits noted Skin: Intact with no visualized rashes Psych: Normal affect and mood ED course: 46-year-old well-appearing male presents to the emergency department for atypical chest pain typical features. Patient is considered high risk due to recent history of stent placement and diagnosis of coronary artery disease. Vital signs upon arrival shows blood pressure 191/120, so vital signs within acceptable limits. EKG does not show any signs of ischemia or infarction. Laboratory evaluation obtained. CBC unremarkable. Coag panel is negative. Metabolic panel is negative. Troponin is negative. Patient reevaluated at bedside on a stable medical condition. Patient is high risk for acute coronary syndrome. Patient be admitted to observation with [facility] cardiology. Admitted to [facility]. EKG interpretation: Ventricular rate 62, sinus rhythm, VT interval 203, QTC 4, QTC 358. No VT prolongation, no QTC prolongation, no ST or T-wave changes noted. EKG compared to 12/31/2021 showing no changes. Overall, this EKG is unremarkable - Related Data Home Medications Medication Instructions Recorded Confirmed Folic Acid 0.8 mg PO DAILY 12/31/21 12/31/21 Previous Rx's Medication Instructions Recorded Ticagrelor [Brilinta] 90 mg PO BID 30 Days #60 tab 01/01/22 Aspirin 81 mg PO DAILY 30 Days #30 01/02/22 Atorvastatin [Lipitor] 80 mg PO HS 30 Days #30 tab 01/02/22 carvediloL [Coreg*] 12.5 mg PO AC-BID 30 Days #60 tab 01/02/22 lisinopriL [Zestril] 40 mg PO DAILY 30 Days #30 tab 01/02/22 Allergies Allergy/AdvReac Type Severity Reaction Status Date / Time Penicillins Allergy Unknown Verified 12/31/21 09:26 Childhood Review of Systems ROS Statement: Those systems with pertinent positive or pertinent negative responses have been documented in the HPI. ROS Other: All systems not noted in ROS Statement are negative. Past Medical History Past Medical History: Hypertension Additional Past Medical History / Comment(s): Clotting disorder MTFR per patient History of Any Multi-Drug Resistant Organisms: None Reported Past Surgical History: Orthopedic Surgery Additional Past Surgical History / Comment(s): ACL repair R knee in 2001 Past Anesthesia/Blood Transfusion Reactions: No Reported Reaction Past Psychological History: No Psychological Hx Reported Smoking Status: Current some day smoker Past Alcohol Use History: Occasional Past Drug Use History: Marijuana General Exam Limitations: no limitations Course Vital Signs 03/23/22 03/23/22 06:24 07:21 Temperature 98.2 F Pulse Rate 60 72 Respiratory 16 18 Rate Blood Pressure 191/128 163/115 O2 Sat by Pulse 98 98 Oximetry Medical Decision Making - Lab Data Result diagrams: 03/23/22 06:59 03/23/22 06:59 Lab Results 03/23/22 03/23/22 03/23/22 Range/Units 06:59 06:59 06:59 WBC 8.1 (3.8-10.6) k/uL RBC 4.83 (4.30-5.90) m/uL Hgb 15.0 (13.0-17.5) gm/dL Hct 42.8 (39.0-53.0) % MCV 88.5 (80.0-100.0) fL MCH 31.1 (25.0-35.0) pg MCHC 35.2 (31.0-37.0) g/dL RDW 13.6 (11.5-15.5) % Plt Count 136 L (150-450) k/uL MPV 8.9 Neutrophils % 82 % Lymphocytes % 11 % Monocytes % 5 % Eosinophils % 1 % Basophils % 0 % Neutrophils # 6.6 (1.3-7.7) k/uL Lymphocytes # 0.9 L (1.0-4.8) k/uL Monocytes # 0.4 (0-1.0) k/uL Eosinophils # 0.0 (0-0.7) k/uL Basophils # 0.0 (0-0.2) k/uL PT 10.9 (9.0-12.0) sec INR 1.0 (<1.2) APTT 25.8 (22.0-30.0) sec Sodium 139 (137-145) mmol/L Potassium 4.1 (3.5-5.1) mmol/L Chloride 106 (98-107) mmol/L Carbon Dioxide 22 (22-30) mmol/L Anion Gap 11 mmol/L BUN 19 (9-20) mg/dL Creatinine 1.06 (0.66-1.25) mg/dL Est GFR (CKD-EPI)AfAm >90 (>60 ml/min/1.73 sqM) Est GFR (CKD-EPI)NonAf 86 (>60 ml/min/1.73 sqM) Glucose 114 H (74-99) mg/dL Calcium 9.6 (8.4-10.2) mg/dL Troponin I (0.000-0.034) ng/mL Lipase 230 (23-300) U/L 03/23/22 Range/Units 06:59 WBC (3.8-10.6) k/uL RBC (4.30-5.90) m/uL Hgb (13.0-17.5) gm/dL Hct (39.0-53.0) % MCV (80.0-100.0) fL MCH (25.0-35.0) pg MCHC (31.0-37.0) g/dL RDW (11.5-15.5) % Plt Count (150-450) k/uL MPV Neutrophils % % Lymphocytes % % Monocytes % % Eosinophils % % Basophils % % Neutrophils # (1.3-7.7) k/uL Lymphocytes # (1.0-4.8) k/uL Monocytes # (0-1.0) k/uL Eosinophils # (0-0.7) k/uL Basophils # (0-0.2) k/uL PT (9.0-12.0) sec INR (<1.2) APTT (22.0-30.0) sec Sodium (137-145) mmol/L Potassium (3.5-5.1) mmol/L Chloride (98-107) mmol/L Carbon Dioxide (22-30) mmol/L Anion Gap mmol/L BUN (9-20) mg/dL Creatinine (0.66-1.25) mg/dL Est GFR (CKD-EPI)AfAm (>60 ml/min/1.73 sqM) Est GFR (CKD-EPI)NonAf (>60 ml/min/1.73 sqM) Glucose (74-99) mg/dL Calcium (8.4-10.2) mg/dL Troponin I <0.012 (0.000-0.034) ng/mL Lipase (23-300) U/L Disposition Clinical Impression: Chest pain Disposition: ADMITTED IP TO THIS [facility] Condition: Fair Referrals: None,Stated [Primary Care Provider] - 1-2 days
--- NOTE | 2022-03-23 07:37 | XR ---
EXAMINATION TYPE: XR chest 1V portable DATE OF EXAM: 03/23/2022 COMPARISON: None INDICATION: Chest pain TECHNIQUE: Single frontal view of the chest is obtained. FINDINGS: The heart size is normal. The pulmonary vasculature is normal. No suspicious infiltrates are evident. There may be a few punctate densities present. Follow-up chest in 3 months is recommended. IMPRESSION: 1. No acute pulmonary process. 2. There may be a few punctate densities, granuloma could be considered. Follow-up exam in 3 months i s recommended. This should be confirmed as stable over the course of 2 years.
[2022-03-23 07:39] LABS: Basophils % (A) 0 %; Eosinophils % (A) 1 %; HCT 42.8 % (39.0-53.0); Lymphocytes # (A) 0.9 k/uL (1.0-4.8); Lymphocytes % (A) 11 %; MCH 31.1 pg (25.0-35.0); MCHC 35.2 g/dL (31.0-37.0); MCV 88.5 fL (80.0-100.0); Mean Platelet Volume 8.9; Monocytes # (A) 0.4 k/uL (0-1.0); Monocytes % (A) 5 %; Neutrophils # (A) 6.6 k/uL (1.3-7.7); Neutrophils % (A) 82 %; Platelet Count 136 k/uL (150-450); RBC 4.83 m/uL (4.30-5.90); RDW 13.6 % (11.5-15.5); WBC 8.1 k/uL (3.8-10.6)
[2022-03-23] MEDS ORDERED: NITROGLYCERIN SL TABS 0.4 MG TAB SUBLINGUAL PRN (08:00)
[2022-03-23 08:12] VITALS: RESP 20
[2022-03-23 09:13] VITALS: BP 159/111; PULSE 60; TEMP 97.4
--- NOTE | 2022-03-23 10:54 | P.CRDCN ---
History of Present Illness History of present illness: 46-year-old gentleman with history of coronary artery disease status post angioplasty of LAD and circumflex coronary artery in December 2021 comes to Hospital complaining of chest pain. He describes it as being burning discomfort in the precordial area that started yesterday and he subsequently had chest discomfort in the interscapular area and he took his daughter soaked to sporting event. He was concerned and anxious and worried about it and elevated blood pressures came to the ER and got admitted. He states that the chest pain has improved following sublingual nitroglycerin. He has remained chest pain-free since. In EKG does not reveal ischemic changes. Had one set of troponin that is negative. Given the known CAD multivessel angioplasty and the unexplained chest pain I a dvised the patient to undergo either cardiac catheterization to make sure that his stents are doing okay are a stress test. Understanding risks benefits he wants to think over this and make a disposition. He is leaning towards going home and getting these things done as outpatient. He understands the risk benefits. In the meantime I will run cardiac enzymes and I will obtain a 2-D echo. Constitutional: Denies chills. Denies fever. Eyes: Denies blurred vision. Denies pain. Ears, nose, mouth and throat: Denies headache. Denies sore throat. Cardiovascular:. Denies shortness of breath. Significant for chest pain Respiratory: Denies cough. Gastrointestinal: Denies abdominal pain. Denies diarrhea. Denies nausea. Denies vomiting. Musculoskeletal: Denies myalgias. Integumentary: Denies pruritus. Denies rash. Neurological: Denies numbness. Denies weakness. Psychiatric: Denies anxiety. Denies depression. Endocrine: Denies fatigue. Denies weight change. Genitourinary: Denies burning, hematuria, frequency of urination. Hematological: No anemia or excess bleeding. General: The patient is awake and alert, in no distress, and does not appear acutely ill. Skin: Skin is warm and dry and no rashes or lesions are noted. Eye: Pupils are equal, round and reactive to light, extra-ocular movements are intact; there is normal conjunctiva bilaterally. Ears, nose, mouth and throat: There are moist mucous membranes and no oral lesions. Neck: The neck is supple, there is no tenderness or JVD. Cardiovascular: There is a regular rate and rhythm. No murmur, rub or gallop is appreciated. Respiratory: Lungs are clear to auscultation, respirations are non-labored, breath sounds are equal. Gastrointestinal: Soft, non-distended, non-tender abdomen without masses or organomegaly noted. There is no rebound or guarding present. Bowel sounds are unremarkable. Back: There is no tenderness to palpation in the midline. There is no obvious deformity. Musculoskeletal: Normal ROM, no tenderness, There is no pedal edema. There is no calf tenderness or swelling. Extremities: No edema. Vascular: Femoral pulse is normal. Posterior tibial pulses are normal .Dorsalis pedis is palpable. Neurological: CN II-XII intact. There are no obvious motor or sensory deficits. Speech is normal. Psychiatric: Cooperative, appropriate mood & affect, normal judgment. Labs: EKG shows normal sinus rhythm without acute ST-T wave changes Troponin is negative Echo is pending Assessment and plan: Precordial chest pain Known CAD status post multivessel angioplasty Continue current medications obtain serial troponins check echocardiogram will decide on further course of action based on what the patient decides Past Medical History Past Medical History: Hypertension Additional Past Medical History / Comment(s): Clotting disorder MTFR per patient History of Any Multi-Drug Resistant Organisms: None Reported Past Surgical History: Orthopedic Surgery Additional Past Surgical History / Comment(s): ACL repair R knee in 2001 Past Anesthesia/Blood Transfusion Reactions: No Reported Reaction Past Psychological History: No Psychological Hx Reported Smoking Status: Former smoker Past Alcohol Use History: Occasional Past Drug Use History: Marijuana Medications and Allergies Home Medications Medication Instructions Recorded Confirmed Type Folic Acid 0.8 mg PO DAILY 12/31/21 12/31/21 History Ticagrelor [Brilinta] 90 mg PO BID 30 Days #60 tab 01/01/22 Rx Aspirin 81 mg PO DAILY 30 Days #30 01/02/22 Rx Atorvastatin [Lipitor] 80 mg PO HS 30 Days #30 tab 01/02/22 Rx carvediloL [Coreg*] 12.5 mg PO AC-BID 30 Days #60 tab 01/02/22 Rx lisinopriL [Zestril] 40 mg PO DAILY 30 Days #30 tab 01/02/22 Rx Allergies Allergy/AdvReac Type Severity Reaction Status Date / Time Penicillins Allergy Unknown Verified 12/31/21 09:26 Childhood Physical Exam Vitals: Vital Signs Temp Pulse Pulse Resp BP BP Pulse Ox 03/23/22 09:09 97.4 F L 60 20 159/111 99 03/23/22 08:10 70 20 157/109 99 03/23/22 07:21 72 18 163/115 98 03/23/22 06:24 98.2 F 60 16 191/128 98 Intake and Output 03/22/22 03/23/22 03/23/22 22:59 06:59 14:59 Other: Weight 95.254 kg 95.254 kg Results 03/23/22 06:59 03/23/22 06:59 Cardiac Enzymes 03/23/22 Range/Units 06:59 Troponin I <0.012 (0.000-0.034) ng/mL Coagulation 03/23/22 Range/Units 06:59 PT 10.9 (9.0-12.0) sec APTT 25.8 (22.0-30.0) sec CBC 03/23/22 Range/Units 06:59 WBC 8.1 (3.8-10.6) k/uL RBC 4.83 (4.30-5.90) m/uL Hgb 15.0 (13.0-17.5) gm/dL Hct 42.8 (39.0-53.0) % Plt Count 136 L (150-450) k/uL Comprehensive Metabolic Panel 03/23/22 Range/Units 06:59 Sodium 139 (137-145) mmol/L Potassium 4.1 (3.5-5.1) mmol/L Chloride 106 (98-107) mmol/L Carbon Dioxide 22 (22-30) mmol/L BUN 19 (9-20) mg/dL Creatinine 1.06 (0.66-1.25) mg/dL Glucose 114 H (74-99) mg/dL Calcium 9.6 (8.4-10.2) mg/dL Current Medications Generic Name Dose Route Start Last Admin Trade Name Freq PRN Reason Stop Dose Admin Aspirin 325 mg 03/24/22 09:00 Aspirin 325 Mg Tab PO DAILY ENRIQUE Nitroglycerin 0.4 mg 03/23/22 08:00 Nitroglycerin Sl Tabs 0.4 Mg Tab SUBLINGUAL Q5M PRN Chest Pain Intake and Output 03/22/22 03/23/22 03/23/22 22:59 06:59 14:59 Other: Weight 95.254 kg 95.254 kg Patient Weight 03/24/22 06:59 Weight 95.254 kg 03/23/22 06:59 03/23/22 06:59
--- NOTE | 2022-03-23 12:29 | CA ---
Transthoracic Echo Report Name: Brian Garcia Age: 46 Gender: M : 1975 Exam Date: 03/23/2022 11:25 Exam Location: [facility] Ht (in): 71 Wt (lb): 210 Ordering Physician: Jason Mirza MD ([id number]) Attending/Referring Phys: Hermes FARIAS Career Technical Counselor Jennifer Ireland RDCS Procedure CPT: Indications: Chest Pain Cardiac Hx: Limited study pt had full echo on 12/31/21 Technical Quality: Good Contrast 1: Total Dose (mL): Contrast 2: Total Dose (mL): MEASUREMENTS (Male / Female) Normal Values 2D ECHO LV Diastolic Diameter PLAX 4.3 cm 4.2 - 5.9 / 3.9 - 5.3 cm LV Systolic Diameter PLAX 2.2 cm IVS Diastolic Thickness 1.2 cm 0.6 - 1.0 / 0.6 - 0.9 cm LVPW Diastolic Thickness 1.5 cm 0.6 - 1.0 / 0.6 - 0.9 cm LV Relative Wall Thickness 0.6 FINDINGS Left Ventricle Mildly increased septal wall thickness. Left ventricular ejection fraction is estimated at 55-60 %. Right Ventricle Right Atrium Left Atrium Mitral Valve Aortic Valve Tricuspid Valve Pulmonic Valve Pericardium No pericardial effusion. Aorta CONCLUSIONS Left ventricle has normal size wall motion and systolic function with an ejection fraction of 60% Previewed by: Dr. Jason Mirza MD (Electronically Signed) Final Date: 23 March 2022 12:28
--- NOTE | 2022-03-23 15:29 | P.HPIM ---
History of Present Illness H&P Date: 03/23/22 Chief Complaint: chest pain 46-year-old male has past medical history of coronary artery disease. Earlier this year patient had [address] Gibbons. Over the last 36 hours patient has been having dull intermittent chest pain episodes that are shifting from [id number]. States that the pain is nonradiating down extremity. Does not radiate to the jaw. [place] like an ache. Sort of similar to the pain he had in december when he had the stents. No associated diaphoresis or nausea. Reported lifting heavy box prior to the pain. No associated shortness of breath. No fevers. Review of Systems Complete review of system was performed, negative except for what is stated in HPI Past Medical History Past Medical History: Hypertension Additional Past Medical History / Comment(s): Clotting disorder MTFR per patient History of Any Multi-Drug Resistant Organisms: None Reported Past Surgical History: Orthopedic Surgery Additional Past Surgical History / Comment(s): ACL repair R knee in 2001 Past Anesthesia/Blood Transfusion Reactions: No Reported Reaction Past Psychological History: No Psychological Hx Reported Smoking Status: Former smoker Past Alcohol Use History: Occasional Past Drug Use History: Marijuana Medications and Allergies Home Medications Medication Instructions Recorded Confirmed Type Folic Acid 0.8 mg PO DAILY 12/31/21 03/23/22 History Ticagrelor [Brilinta] 90 mg PO BID 30 Days #60 tab 01/01/22 03/23/22 Rx Atorvastatin [Lipitor] 80 mg PO HS 30 Days #30 tab 01/02/22 03/23/22 Rx carvediloL [Coreg*] 12.5 mg PO AC-BID 30 Days #60 tab 01/02/22 03/23/22 Rx Aspirin EC [Ecotrin Low Dose] 81 mg PO DAILY 03/23/22 03/23/22 History Nitroglycerin Sl Tabs [Nitrostat] 0.4 mg SUBLINGUAL Q5M PRN 100 Days 03/23/22 Rx #100 tab lisinopriL [Zestril] 40 mg PO HS 03/23/22 03/23/22 History Allergies Allergy/AdvReac Type Severity Reaction Status Date / Time Penicillins Allergy Unknown Verified 03/23/22 12:31 Childhood Physical Exam Vitals: Vital Signs Temp Pulse Pulse Resp BP BP Pulse Ox 03/23/22 09:09 97.4 F L 60 20 159/111 99 04/30/22 08:10 70 20 157/109 99 03/23/22 07:21 72 18 163/115 98 03/23/22 06:24 98.2 F 60 16 191/128 98 Intake and Output 03/22/22 03/23/22 03/23/22 22:59 06:59 14:59 Other: Weight 95.254 kg 95.254 kg Constitutional: No acute distress, conversant, pleasant Eyes:Anicteric sclerae, moist conjunctiva, no lid-lag, PERRLA, ENMT: Oropharynx clear, no erythema, exudates Neck: Supple, FROM, no masses, or JVD, No carotid bruits, No thyromegaly Lungs: Clear to auscultation, Clear to percussion, Normal respiratory effort, no accessory muscle use Cardiovascular: Heart regular in rate and rhythm, No murmurs, gallops, or rubs, No peripheral edema Abdominal: Soft, Nontender, no guarding, rebound or rigidity, Normoactive bowel sounds, No hepatomegaly, No splenomegaly, No palpable mass Skin: Normal temperature, tone, texture, turgor, no induration, No subcutaneous nodules, No rash, lesions, No ulcers Extremities: No digital cyanosis, No clubbing, Pedal pulses intact and symmetrical, Radial pulses intact and symmetrical, No calf tenderness Psychiatric: Alert and oriented to person, place and time, appropriate affect, intact judgement Neuro: Muscles Strength 5/5 in all 4 extremities, Sensation to light touch grossly present throughout, Cranial nerves II-XII grossly intact, no focal sensory deficits Results CBC & Chem 7: 03/23/22 06:59 03/23/22 06:59 Labs: Abnormal Lab Results - Last 24 Hours (Table) 03/23/22 03/23/22 Range/Units 06:59 06:59 Plt Count 136 L (150-450) k/uL Lymphocytes # 0.9 L (1.0-4.8) k/uL Glucose 114 H (74-99) mg/dL Thrombosis Risk Factor Assmnt - Choose All That Apply Each Factor Represents 1 point: Age 41-60 years Thrombosis Risk Factor Assessment Total Risk Factor Score: 1 Thrombosis Risk Factor Assessment Level: Low Risk Assessment and Plan Plan: Acute chest pain CAD s/p stenting -Cycle trops -Tele -Aspirin, (already got 325 mg) continue statin, coreg and lisinopril -Cardio consult -Nitro when necessary -Echocardiogram MTHFR Carrier -Stable
--- NOTE | 2022-03-23 15:32 | P.DS ---
Providers Date of admission: 03/23/22 08:00 Expected date of discharge: 03/23/22 Attending physician: Zoey Rojas DO Consults: 03/23/22 08:00 Consult Physician Urgent Consulting Provider: Jovani Gibbons Consult Reason/Comments: chest pain Do you want consulting provider notified?: Yes Primary care physician: Stated None Hospital Course: 46-year-old male has past medical history of coronary artery disease. Earlier this year patient had [address] Gibbons. Over the last 36 hours patient has been having dull intermittent chest pain episodes that are shifting from [id number]. States that the pain is nonradiating down extremity. Does not radiate to the jaw. [place] like an ache. Sort of similar to the pain he had in december when he had the stents. No associated diaphoresis or nausea. Reported lifting heavy box prior to the pain. No associated shortness of breath. No fevers. Emergency department patient was given some nitroglycerin which relieved his pain. EKG showed sinus rhythm without any acute ST or T-wave changes. Patient was admitted to rule out acute myocardial infarction. Troponin was cycled. It remained negative. An acute coronary event was ruled out. Patient was seen by cardiology who recommended possible stress testing versus heart catheterization on Friday. He had an echocardiogram that did not show any acute abnormalities. Patient decided to follow-up with cardiology in the office. He was not cleared by cardiology for discharge however. Due to that he signed out acute medical advise because he did not want to wait until Friday in the hospital. Patient Condition at Discharge: Fair Plan - Discharge Summary Discharge Rx Participant: No New Discharge Prescriptions: New Nitroglycerin Sl Tabs [Nitrostat] 0.4 mg SUBLINGUAL Q5M PRN 100 Days #100 tab PRN Reason: Chest Pain No Action Folic Acid 0.8 mg PO DAILY Ticagrelor [Brilinta] 90 mg PO BID 30 Days #60 tab Aspirin EC [Ecotrin Low Dose] 81 mg PO DAILY carvediloL [Coreg*] 12.5 mg PO AC-BID 30 Days #60 tab Atorvastatin [Lipitor] 80 mg PO HS 30 Days #30 tab lisinopriL [Zestril] 40 mg PO HS Discharge Medication List Folic Acid 0.8 mg PO DAILY 12/31/21 [History] Ticagrelor [Brilinta] 90 mg PO BID 30 Days #60 tab 01/01/22 [Rx] Atorvastatin [Lipitor] 80 mg PO HS 30 Days #30 tab 01/02/22 [Rx] carvediloL [Coreg*] 12.5 mg PO AC-BID 30 Days #60 tab 01/02/22 [Rx] Aspirin EC [Ecotrin Low Dose] 81 mg PO DAILY 03/23/22 [History] Nitroglycerin Sl Tabs [Nitrostat] 0.4 mg SUBLINGUAL Q5M PRN 100 Days #100 tab 03/23/22 [Rx] lisinopriL [Zestril] 40 mg PO HS 03/23/22 [History] Follow up Appointment(s)/Referral(s): None,Stated [Primary Care Provider] - 1-2 days
[2022-03-24] MEDS ORDERED: ASPIRIN 325 MG TAB PO SCH (09:00)
== END 2022-03-23 13:35 | disposition left against medical advice (07) ==
LOC: EC 06:23 → 6NMEDSUR 08:00
PROVIDERS: ADMIT Internal Medicine; ATTEND Internal Medicine
DX: R07.2 Precordial pain (principal); I25.10 Atherosclerotic heart disease of native coronary artery without angina pectoris; F17.200 Nicotine dependence, unspecified, uncomplicated; I10 Essential (primary) hypertension; X50.0XXA Overexertion from strenuous movement or load, initial encounter; M79.609 Pain in unspecified limb; E72.12 Methylenetetrahydrofolate reductase deficiency; Z79.02 Long term (current) use of antithrombotics/antiplatelets; Z79.82 Long term (current) use of aspirin; Z79.899 Other long term (current) drug therapy; Z88.0 Allergy status to penicillin; Z95.5 Presence of coronary angioplasty implant and graft
CPT/HCPCS: 99285; 36415; 93005; 93308; 80048; 83690; 84484; 85025; 85610; 85730; 71045; G0378

== ENCOUNTER 2022-06-21 20:46 | Observation (INO) | payer OTHER ==
[2022-06-21 20:53] VITALS: TEMP 98
[2022-06-21] MEDS ORDERED: NITROGLYCERIN SL TABS 0.4 MG TAB SUBLINGUAL PRN (21:19)
[2022-06-21] MEDS ORDERED: ASPIRIN 325 MG TAB PO STA (21:19)
[2022-06-21] MEDS ORDERED: NITROGLYCERIN OINT 1 INCH/GM PACKET TOPICAL STA (21:19)
--- NOTE | 2022-06-21 21:19 | ED ---
Chest Pain HPI - General Chief Complaint: Chest Pain Stated Complaint: Possible DVT in right shoulder Time Seen by Provider: 06/21/22 21:00 Source: patient, RN notes reviewed Mode of arrival: ambulatory Limitations: no limitations - History of Present Illness Initial Comments: This is a pleasant 46-year-old male with a history of cardiovascular disease. Patient had 3 stents deployed in December by Dr. Gibbons. It on Friday started getting some strange feelings of fatigue and chest wall discomfort both behind both shoulder blades and in his chest. Patient states emitted heart is regular physician -- he went to the office today and had an EKG done. He also had blood work done. Patient states he went home and then the symptoms seemed to increase. Patient states he had discomfort across his chest which was relieved with nitroglycerin. Patient then started feeling pain in his left shoulder. He states it does seem to hurt worse when he moves it. Patient worried about a blood clot. Patient states he had a blood draw and is left arm at the doctor's office at 10 AM this morning. He states he feels like his left shoulder swol deo. No headache, no fever or chills, no changes in vision or hearing, no sore throat or difficulty with speech, no neck pain, no shortness of breath, no diaphoresis, no injury no abdominal pain, no nausea or vomiting, no changes in urination or bowel movements, no numbness or tingling,, left shoulder discomfort exacerbated by movement, alleviated somewhat by rest., no skin rashes or lesions. Past medical, surgical, social, and family history reviewed. Note that the patient states that he has doubled the dose of carvedilol as instructed by his family physician today. He also stopped taking lisinopril because he believes this was causing gout. Patient noted to be an 81 mg of aspirin--patient states he has not been taking this. MD Complaint: chest pain - Related Data Home Medications Medication Instructions Recorded Confirmed Folic Acid 0.8 mg PO DAILY 12/31/21 03/23/22 Aspirin EC [Ecotrin Low Dose] 81 mg PO DAILY 03/23/22 03/23/22 lisinopriL [Zestril] 40 mg PO HS 03/23/22 03/23/22 Previous Rx's Medication Instructions Recorded Ticagrelor [Brilinta] 90 mg PO BID 30 Days #60 tab 01/01/22 Atorvastatin [Lipitor] 80 mg PO HS 30 Days #30 tab 01/02/22 carvediloL [Coreg*] 12.5 mg PO AC-BID 30 Days #60 tab 01/02/22 Nitroglycerin Sl Tabs [Nitrostat] 0.4 mg SUBLINGUAL Q5M PRN 100 Days 03/23/22 #100 tab Allergies Allergy/AdvReac Type Severity Reaction Status Date / Time Penicillins Allergy Unknown Verified 06/21/22 20:53 Childhood Review of Systems ROS Statement: Those systems with pertinent positive or pertinent negative responses have been documented in the HPI. ROS Other: All systems not noted in ROS Statement are negative. EKG Findings - EKG Comments: EKG Findings:: EKG done at 2127 review ED attending physician reveals sinus rhythm with a rate of 69. GA interval 207 ms. Remainder of the intervals are normal. Normal axis. No significant change in morphology. Previous study from 03/23/2022 Past Medical History Past Medical History: Hypertension Additional Past Medical History / Comment(s): Clotting disorder MTFR per patient History of Any Multi-Drug Resistant Organisms: None Reported Past Surgical History: Orthopedic Surgery Additional Past Surgical History / Comment(s): ACL repair R knee in 2001 Past Anesthesia/Blood Transfusion Reactions: No Reported Reaction Past Psychological History: No Psychological Hx Reported Smoking Status: Former smoker Past Alcohol Use History: Occasional Past Drug Use History: Marijuana General Exam - General Exam Comments Initial Comments: Anxious appearing male who does not appear to be ill or toxic. Vital signs reviewed. Blood pressure 181/119 on initial evaluation Limitations: no limitations General appearance: alert, in no apparent distress, anxious Head exam: Present: atraumatic, normocephalic, normal inspection Eye exam: Present: normal appearance, PERRL, EOMI. Absent: scleral icterus, conjunctival injection, periorbital swelling ENT exam: Present: normal exam, mucous membranes moist, normal external ear exam Neck exam: Present: normal inspection, full ROM. Absent: tenderness, meningismus, lymphadenopathy Respiratory exam: Present: normal lung sounds bilaterally. Absent: respiratory distress, wheezes, rales, rhonchi, stridor Cardiovascular Exam: Present: regular rate, normal rhythm, normal heart sounds. Absent: systolic murmur, diastolic murmur, rubs, gallop, clicks GI/Abdominal exam: Present: soft, normal bowel sounds. Absent: distended, tenderness, guarding, rebound, rigid Extremities exam: Present: normal inspection, full ROM, tenderness (Patient has soft tissue tenderness to the left shoulder. Full range of motion exacerbated by movement. No erythema. No effusion.), normal capillary refill, other (No break in skin integrity. No evidence of vascular insult. No palpable cord. Patient does have a site in the left antecubital space consistent with a venipuncture earlier today). Absent: pedal edema, joint swelling, calf tenderness Back exam: Present: normal inspection Neurological exam: Present: alert, oriented X3, CN II-XII intact Psychiatric exam: Present: normal affect, normal mood Skin exam: Present: warm, dry, intact, normal color. Absent: rash Course Vital Signs 06/21/22 06/21/22 20:49 21:58 Temperature 98 F Pulse Rate 74 72 Respiratory 22 18 Rate Blood Pressure 182/119 149/94 O2 Sat by Pulse 97 96 Oximetry - Reevaluation(s) Reevaluation #1: 06/21/22 22:46 Medical record is reviewed Patient's symptoms improved other than the shoulder pain. Patient concerned that he was feeling pain between his shoulder blades and the left shoulder. Patient is informed of results and questions answered Patient in no distress Reevaluation #2: 06/21/22 23:37 Discussed all findings and detail with the patient. Discussed risks versus benefits of leaving. Patient wants to go home. [place] alexander one troponin has significant cardiac history. Patient's CT was negative. Patient's left shoulder x-ray was negative. Computed tomography scan did show dilated gallbladder which is not the patient's clinical symptoms. Liver enzymes were normal. I did explain to the patient with chest discomfort and relief with nitroglycerin observation with serial troponins are the standard of care. My advice is admission for observation. Patient is upset with this recommendation. However, he did not appear to want to sign out AGAINST MEDICAL ADVICE. Nor did I advise him to sign out. Chest Pain MDM - MDM Order a CTA of his chest as the patient had chest discomfort which radiated to the back. I did discuss this diagnostic testing with the patient. Patient does have significant anxiety. Patient had negative d-dimer and negative troponin. Plan to admit the patient for serial troponins. Suspect the patient's left shoulder pain is musculoskeletal. It is difficult to ascertain what the patient's earlier chest discomfort was due to. However I do not believe this is consistent with gallbladder disease despite the computed tomography scan showing a dilated gallbladder. Did agree to give 1 dose of Toradol. Patient admitted for observation and serial troponins. The case was discussed in detail with ED attending physician. Presentation, findings, treatment plan discussed in detail. Electric Motor Analyst Dr. Hunter Case discussed with [facility] hospitalist group for observation admission Disposition Clinical Impression: Chest pain, Hypertension, uncontrolled, Left shoulder pain Disposition: ADMITTED IP TO THIS HOSP Condition: Fair Time of Disposition: 22:34 Decision to Admit Reason: Admit from EC Decision Time: 22:34
[2022-06-21 21:55] LABS: Basophils % (A) 0 %; Eosinophils # (A) 0.1 k/uL (0-0.7); Eosinophils % (A) 1 %; HCT 40.2 % (39.0-53.0); HGB 14.4 gm/dL (13.0-17.5); Lymphocytes % (A) 13 %; MCH 31.6 pg (25.0-35.0); MCHC 35.9 g/dL (31.0-37.0); MCV 88.1 fL (80.0-100.0); Mean Platelet Volume 9.1; Monocytes # (A) 0.4 k/uL (0-1.0); Monocytes % (A) 5 %; Neutrophils # (A) 5.8 k/uL (1.3-7.7); Neutrophils % (A) 78 %; Platelet Count 114 k/uL (150-450); RBC 4.56 m/uL (4.30-5.90); RDW 13.6 % (11.5-15.5); WBC 7.4 k/uL (3.8-10.6)
[2022-06-21 22:02] VITALS: BP 149/94; PULSE 72; RESP 18
[2022-06-21 22:20] LABS: ALT 31 U/L (4-49); AST 39 U/L (17-59); African American GFR (CKD) >90 (>60 ml/min/1.73 sqM); Albumin 4.7 g/dL (3.5-5.0); Alkaline Phosphatase 53 U/L (38-126); Anion Gap 7 mmol/L; Blood Urea Nitrogen 22 mg/dL (9-20); Calcium 9.2 mg/dL (8.4-10.2); Carbon Dioxide 25 mmol/L (22-30); Chloride 105 mmol/L (98-107); Glucose 90 mg/dL (74-99); Magnesium 1.9 mg/dL (1.6-2.3); Non-African American GFR(CKD) >90 (>60 ml/min/1.73 sqM); Potassium 3.7 mmol/L (3.5-5.1); Sodium 137 mmol/L (137-145); Total Bilirubin 0.9 mg/dL (0.2-1.3); Total Protein 7.1 g/dL (6.3-8.2)
--- NOTE | 2022-06-21 22:30 | XR ---
EXAMINATION TYPE: XR chest 1V portable DATE OF EXAM: 06/21/2022 COMPARISON: 03/23/2022 HISTORY: Chest pain TECHNIQUE: Single view FINDINGS: Heart and mediastinum are normal. Lungs are clear. Diaphragm is normal. Bony thorax appears normal. IMPRESSION: Normal chest. No change
[2022-06-21] MEDS ORDERED: SODIUM CHLORIDE 0.9% 1,000 ML IV ONE (22:45)
[2022-06-21] MEDS ORDERED: ACETAMINOPHEN TAB 325 MG TAB PO PRN (22:54)
[2022-06-21] MEDS ORDERED: NALOXONE 0.4 MG/ML 1 ML VIAL IV PRN (22:54)
--- NOTE | 2022-06-21 23:04 | XR ---
EXAMINATION TYPE: XR shoulder complete LT DATE OF EXAM: 06/21/2022 COMPARISON: NONE HISTORY: Shoulder pain TECHNIQUE: 3 views FINDINGS: I see no fracture nor dislocation. Joint spaces are normal. Glenohumeral joint is intact IMPRESSION: Negative left shoulder exam. No fracture.
--- NOTE | 2022-06-21 23:25 | CT ---
EXAMINATION TYPE: CT angio chest DATE OF EXAM: 06/21/2022 COMPARISON: 12/31/2021 HISTORY: chest pain. prior on PACS CT DLP: 524.5 mGycm Automated exposure control for dose reduction was used. CONTRAST: Performed with IV Contrast, patient injected with 100ml mL of Isovue 370. There are Three-D postprocessed images. The lungs are clear of infiltrate. No pleural effusion or pneumothorax. There is dilated gallbladder that measures 6.6 cm. Heart appears normal. No pericardial effusion. No mediastinal adenopathy. There are no hilar masses. There is normal contrast opacification of the pulmonary arteries. No filling defect. Thoracic aorta i s intact. No aneurysm. No dissection. The thoracic spine is intact. No compression fracture. IMPRESSION: No evidence of pulmonary embolism. Dilated gallbladder suggestive of gallbladder dysfunction or rosita cystitis and not significantly different than recent exam.
[2022-06-21] MEDS ORDERED: KETOROLAC 15 MG/ML 1 ML VIAL IVP STA (23:41)
[2022-06-22] MEDS ORDERED: NITROGLYCERIN OINT 1 INCH/GM PACKET TOPICAL SCH (04:00)
[2022-06-22] MEDS ORDERED: TICAGRELOR 90 MG TAB PO SCH (09:00)
[2022-06-22] MEDS ORDERED: NON FORMULARY DRUG (Folic Acid [Folic Acid] 0.4 MG Tablet) PO SCH (09:00)
[2022-06-22] MEDS ORDERED: ATORVASTATIN 80 MG TAB PO SCH (21:00)
[2022-06-22] MEDS ORDERED: lisinopriL 20 MG TAB PO SCH (21:00)
== END 2022-06-22 00:21 | disposition left against medical advice (07) ==
LOC: EC 20:46 → 6NMEDSUR 21:47
PROVIDERS: ADMIT Hospitalist; ATTEND Hospitalist
DX: R07.89 Other chest pain (principal); I10 Essential (primary) hypertension; K82.8 Other specified diseases of gallbladder; I25.10 Atherosclerotic heart disease of native coronary artery without angina pectoris; M25.512 Pain in left shoulder; F41.9 Anxiety disorder, unspecified; M10.9 Gout, unspecified; T46.4X6A Underdosing of angiotensin-converting-enzyme inhibitors, initial encounter; Z91.128 Patient's intentional underdosing of medication regimen for other reason; Z53.29 Procedure and treatment not carried out because of patient's decision for other reasons; Z79.02 Long term (current) use of antithrombotics/antiplatelets; Z79.899 Other long term (current) drug therapy; Z79.82 Long term (current) use of aspirin; Z88.0 Allergy status to penicillin; Z87.891 Personal history of nicotine dependence; Z98.890 Other specified postprocedural states; Z86.2 Personal history of diseases of the blood and blood-forming organs and certain disorders involving the immune mechanism; Z95.5 Presence of coronary angioplasty implant and graft
CPT/HCPCS: 96360; 99285; 36415; 93005; 85379; 83880; 80053; 83735; 84484; 85025; 87635; 73030; 71045; 71275; G0378; Q9967; 96374

== ENCOUNTER 2024-03-12 22:38 | Emergency (ER) | payer OTHER ==
[2024-03-12 22:58] VITALS: TEMP 97.7
[2024-03-12 23:44] LABS: Appearance,Urine Clear (Clear); Bilirubin,Urine Negative (Negative); Blood,Urine Negative (Negative); Color,Urine Colorless; Glucose,Urine (UA) Negative (Negative); Ketones,Urine Negative (Negative); Leukocyte Esterase,Urine Negative (Negative); Nitrite,Urine Negative (Negative); PH, Urine 5.5 (5.0-8.0); Protein,Urine Negative (Negative); Specific Gravity,Urine 1.008 (1.001-1.035); Urobilinogen,Urine <2.0 mg/dL (<2.0)
[2024-03-12 23:50] LABS: INR 1.1 (<1.2); Partial Thromboplastin Time 26.2 sec (22.0-30.0); Prothrombin Time 11.7 sec (10.0-12.5)
[2024-03-12 23:53] LABS: ALT 38 U/L (4-49); AST 44 U/L (17-59); African American GFR (CKD) >90 (>60 ml/min/1.73 sqM); Albumin 4.6 g/dL (3.5-5.0); Alkaline Phosphatase 45 U/L (38-126); Amylase 64 U/L (30-110); Anion Gap 10 mmol/L; Blood Urea Nitrogen 19 mg/dL (9-20); Calcium 9.5 mg/dL (8.4-10.2); Carbon Dioxide 21 mmol/L (22-30); Chloride 106 mmol/L (98-107); Glucose 93 mg/dL (74-99); Lipase 277 U/L (23-300); Non-African American GFR(CKD) 84 (>60 ml/min/1.73 sqM); Potassium 3.6 mmol/L (3.5-5.1); Sodium 137 mmol/L (137-145); Total Bilirubin 0.7 mg/dL (0.2-1.3); Total Protein 7.1 g/dL (6.3-8.2)
[2024-03-12] MEDS: SODIUM CHLORIDE 0.9% 1,000 ML IV STA (23:53)
[2024-03-12 23:55] LABS: Basophils % (A) 0 %; Eosinophils # (A) 0.1 k/uL (0-0.7); Eosinophils % (A) 1 %; HCT 40.8 % (39.0-53.0); Hyperchromasia Slight; Lymphocytes # (A) 1.2 k/uL (1.0-4.8); Lymphocytes % (A) 17 %; MCH 31.8 pg (25.0-35.0); MCHC 36.8 g/dL (31.0-37.0); MCV 86.5 fL (80.0-100.0); Mean Platelet Volume 8.7; Monocytes # (A) 0.4 k/uL (0-1.0); Monocytes % (A) 6 %; Neutrophils # (A) 5.4 k/uL (1.3-7.7); Neutrophils % (A) 75 %; Platelet Count 103 k/uL (150-450); RBC 4.71 m/uL (4.30-5.90); RDW 13.8 % (11.5-15.5); WBC 7.2 k/uL (3.8-10.6)
[2024-03-13 02:12] VITALS: RESP 18
--- NOTE | 2024-03-13 02:21 | ED ---
Abdominal Pain HPI - General Chief Complaint: Abdominal Pain Stated Complaint: Abdominal Pain Time Seen by Provider: 03/12/24 22:51 Source: patient Mode of arrival: ambulatory Limitations: no limitations - History of Present Illness Initial Comments: 48-year-old male presenting with chief complaint of abdominal pain. Pain is located in the left upper quadrant and has been present for about a week. He describes it as a constant nagging burning pain. 2 out of 10 in intensity. States that it is worse when he sits or lays down. Better with standing. He reports that his stools have been yellow in color. No nausea or vomiting. Pain is not affected by meals. No fevers or chills. No chest pain or difficulty breathing. No diarrhea, hematochezia, melena. He had an appoint with Dr. 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 - Related Data Home Medications Medication Instructions Recorded Confirmed Folic Acid 0.8 mg PO DAILY 12/31/21 06/21/22 Aspirin EC [Ecotrin Low Dose] 81 mg PO DAILY 03/23/22 06/21/22 lisinopriL [Zestril] 40 mg PO HS 03/23/22 06/21/22 Previous Rx's Medication Instructions Recorded Ticagrelor [Brilinta] 90 mg PO BID 30 Days #60 tab 01/01/22 Atorvastatin [Lipitor] 80 mg PO HS 30 Days #30 tab 01/02/22 carvediloL [Coreg*] 12.5 mg PO AC-BID 30 Days #60 tab 01/02/22 Nitroglycerin Sl Tabs [Nitrostat] 0.4 mg SUBLINGUAL Q5M PRN 100 Days 03/23/22 #100 tab Omeprazole 20 mg PO DAILY #20 tab 03/13/24 Allergies Allergy/AdvReac Type Severity Reaction Status Date / Time Penicillins Allergy Unknown Verified 03/12/24 22:48 Childhood Review of Systems ROS Statement: Those systems with pertinent positive or pertinent negative responses have been documented in the HPI. ROS Other: All systems not noted in ROS Statement are negative. Past Medical History Past Medical History: Hypertension, Myocardial Infarction ([place]) Additional Past Medical History / Comment(s): Clotting disorder MTFR per patient ; 3 stents placed 2021 History of Any Multi-Drug Resistant Organisms: None Reported Past Surgical History: Orthopedic Surgery Additional Past Surgical History / Comment(s): ACL repair R knee in 2001 Past Anesthesia/Blood Transfusion Reactions: No Reported Reaction Past Psychological History: No Psychological Hx Reported Smoking Status: Former smoker Past Alcohol Use History: Occasional Past Drug Use History: Marijuana General Exam Limitations: no limitations General appearance: alert, in no apparent distress Head exam: Present: atraumatic, normocephalic Eye exam: Present: normal appearance, EOMI Neck exam: Present: normal inspection. Absent: meningismus Respiratory exam: Present: normal lung sounds bilaterally. Absent: respiratory distress, wheezes, rales, rhonchi, stridor Cardiovascular Exam: Present: regular rate, normal rhythm, normal heart sounds. Absent: systolic murmur, diastolic murmur, rubs, gallop, clicks GI/Abdominal exam: Present: soft. Absent: distended, tenderness, guarding, rebound, rigid Extremities exam: Present: normal inspection Neurological exam: Present: alert, oriented X3 Psychiatric exam: Present: normal affect, normal mood Skin exam: Present: warm, dry Course Vital Signs 03/12/24 03/13/24 03/13/24 22:41 00:40 03:00 Temperature 97.7 F Pulse Rate 69 74 77 Respiratory 20 18 18 Rate Blood Pressure 179/114 170/98 148/80 O2 Sat by Pulse 98 100 100 Oximetry Medical Decision Making - Medical Decision Making Was pt. sent in by a medical professional or institution (Dr. PA, CHIEF OF STAFF DOCTOR, urgent care, hospital, or jail...) When possible be specific @ -No Did you speak to anyone other than the patient for history (EMS, parent, family, police, friend...)? What history was obtained from this source @ -No Did you review nursing and triage notes (agree or disagree)? Why? @ -I reviewed and agree with nursing and triage notes Were old charts reviewed (outside hosp., previous admission, EMS record, old EKG, old radiological studies, urgent care reports/EKG's, jail records)? Report findings @ -No old charts were reviewed Differential Diagnosis (chest pain, altered mental status, abdominal pain women, abdominal pain men, vaginal bleeding, weakness, fever, dyspnea, syncope, headache, dizziness, GI bleed, back pain, seizure, CVA, palpatations, mental health, musculoskeletal)? @ -MDM Differential Abdominal Pain Men: Appendicitis, cholecystitis, diverticulosis, ischemic bowel, pancreatitis, hepat itis, UTI, gastroenteritis, AAA, incarcerated hernia, bowel obstruction, constipation, inflammatory bowel, hepatitis, peptic ulcer disease, splenic infarction, perforated viscus, testicular torsion... This is not meant to be an all-inclusive list EKG interpreted by me (3pts min.). @ -As above X-rays interpreted by me (1pt min.). @ -None done CT interpreted by me (1pt min.). @ -CT shows gallbladder is dilated measuring 6.6 cm transverse diameter. No calcified gallstones identified. There are multiple small foci of calcification in the wall of the gallbladder. No surrounding inflammation, biliary duct dilation, or choledocholithiasis is seen. The appendix is normal bowel loops are nondilated no acute inflammatory changes are seen involving the bowel U/S interpreted by me (1pt. min.). @ -None done What testing was considered but not performed or refused? (CT, X-rays, U/S, labs)? Why? @ -None What meds were considered but not given or refused? Why? @ -None Did you discuss the management of the patient with other professionals (professionals i.e. , PA, CHIEF OF STAFF DOCTOR, lab, RT, psych nurse, social services technician, clam grower, teacher, telecommunications officer, caseworker intake)? Give summary @ -No Was smoking cessation discussed for >3mins.? @ -No Was critical care preformed (if so, how long)? @ -No Were there social determinants of health that impacted care today? How? (Homelessness, low income, unemployed, alcoholism, drug addiction, transportation, low edu. Level, literacy, decrease access to med. care, snf, rehab)? @ -No Was there de-escalation of care discussed even if they declined (Discuss DNR or withdrawal of care, Hospice)? DNR status @ -No What co-morbidities impacted this encounter? (DM, HTN, Smoking, COPD, CAD, Cancer, CVA, ARF, Chemo, Hep., AIDS, mental health diagnosis, sleep apnea, morbid obesity)? @ -None Was patient admitted / discharged? Hospital course, mention meds given and route, prescriptions, significant lab abnormalities, going to OR and other pertinent info. @ -48-year-old male presenting with chief complaint of left upper quadrant pain ongoing for about a week. History and physical exam are conducted. Lab work shows no leukocytosis or anemia. Negative troponin. CMP amylase and lipase require no action. Urine shows no infectious process or bleeding. CT shows dilated gallbladder, correlate clinically for cholecystitis. The patient is having no fevers or vomiting. His pain is located primarily in the left upper quadrant, pain is not affected by food. I feel it is unlikely that this is due to cholecystitis. I discussed these results with the patient. I explained that if we wanted to explore them further we would need to have an ultrasound. Patient is okay with discharge home at this time. He is instructed to follow-up closely with his PCP Dr. Guevara regarding today's CT findings. Given Protonix prior to discharge. Follow-up with PCP. Report back to ER with any new or worsening symptoms. Discussed return parameters and answered all questions. Patient conveyed verbal understanding and agreed to the plan. I discussed this case in detail with my attending Dr. Hunter Undiagnosed new problem with uncertain prognosis? @ -No Drug Therapy requiring intensive monitoring for toxicity (Heparin, Nitro, Insulin, Cardizem)? @ -No Were any procedures done? @ -No Diagnosis/symptom? @ -Abdominal pain Acute, or Chronic, or Acute on Chronic? @ -Acute Uncomplicated (without systemic symptoms) or Complicated (systemic symptoms)? @ -Uncomplicated Side effects of treatment? @ -No Exacerbation, Progression, or Severe Exacerbation? @ -No Poses a threat to life or bodily function? How? (Chest pain, [place], [place], pneumonia, PE, COPD, DKA, ARF, appy, cholecystitis, CVA, Diverticulitis, Homicidal, Suicidal, threat to staff... and all critical care pts) @ -Low likelihood - Lab Data Result diagrams: 03/12/24 23:26 03/12/24 23:26 Lab Results 03/12/24 03/12/24 03/12/24 Range/Units 23:26 23:26 23:26 WBC 7.2 (3.8-10.6) k/uL RBC 4.71 (4.30-5.90) m/uL Hgb 15.0 (13.0-17.5) gm/dL Hct 40.8 (39.0-53.0) % MCV 86.5 (80.0-100.0) fL MCH 31.8 (25.0-35.0) pg MCHC 36.8 (31.0-37.0) g/dL RDW 13.8 (11.5-15.5) % Plt Count 103 L (150-450) k/uL MPV 8.7 Neutrophils % 75 % Lymphocytes % 17 % Monocytes % 6 % Eosinophils % 1 % Basophils % 0 % Neutrophils # 5.4 (1.3-7.7) k/uL Lymphocytes # 1.2 (1.0-4.8) k/uL Monocytes # 0.4 (0-1.0) k/uL Eosinophils # 0.1 (0-0.7) k/uL Basophils # 0.0 (0-0.2) k/uL Hyperchromasia Slight PT 11.7 (10.0-12.5) sec INR 1.1 (<1.2) APTT 26.2 (22.0-30.0) sec Sodium (137-145) mmol/L Potassium (3.5-5.1) mmol/L Chloride (98-107) mmol/L Carbon Dioxide (22-30) mmol/L Anion Gap mmol/L BUN (9-20) mg/dL Creatinine (0.66-1.25) mg/dL Est GFR (CKD-EPI)AfAm (>60 ml/min/1.73 sqM) Est GFR (CKD-EPI)NonAf (>60 ml/min/1.73 sqM) Glucose (74-99) mg/dL Plasma Lactic Acid Jose C (0.7-2.0) mmol/L Calcium (8.4-10.2) mg/dL Total Bilirubin (0.2-1.3) mg/dL AST (17-59) U/L ALT (4-49) U/L Alkaline Phosphatase (38-126) U/L Troponin I (0.000-0.034) ng/mL Total Protein (6.3-8.2) g/dL Albumin (3.5-5.0) g/dL Amylase (30-110) U/L Lipase (23-300) U/L Urine Color Colorless Urine Appearance Clear (Clear) Urine pH 5.5 (5.0-8.0) Ur Specific [place] 1.008 (1.001-1.035) Urine Protein Negative (Negative) Urine Glucose (UA) Negative (Negative) Urine Ketones Negative (Negative) Urine Blood Negative (Negative) Urine Nitrite Negative (Negative) Urine Bilirubin Negative (Negative) Urine Urobilinogen <2.0 (<2.0) mg/dL Ur Leukocyte Esterase Negative (Negative) 03/12/24 03/12/24 03/12/24 Range/Units 23:26 23:26 23:26 WBC (3.8-10.6) k/uL RBC (4.30-5.90) m/uL Hgb (13.0-17.5) gm/dL Hct (39.0-53.0) % MCV (80.0-100.0) fL MCH (25.0-35.0) pg MCHC (31.0-37.0) g/dL RDW (11.5-15.5) % Plt Count (150-450) k/uL MPV Neutrophils % % Lymphocytes % % Monocytes % % Eosinophils % % Basophils % % Neutrophils # (1.3-7.7) k/uL Lymphocytes # (1.0-4.8) k/uL Monocytes # (0-1.0) k/uL Eosinophils # (0-0.7) k/uL Basophils # (0-0.2) k/uL Hyperchromasia PT (10.0-12.5) sec INR (<1.2) APTT (22.0-30.0) sec Sodium 137 (137-145) mmol/L Potassium 3.6 (3.5-5.1) mmol/L Chloride 106 (98-107) mmol/L Carbon Dioxide 21 L (22-30) mmol/L Anion Gap 10 mmol/L BUN 19 (9-20) mg/dL Creatinine 1.07 (0.66-1.25) mg/dL Est GFR (CKD-EPI)AfAm >90 (>60 ml/min/1.73 sqM) Est GFR (CKD-EPI)NonAf 84 (>60 ml/min/1.73 sqM) Glucose 93 (74-99) mg/dL Plasma Lactic Acid Jose C 0.7 (0.7-2.0) mmol/L Calcium 9.5 (8.4-10.2) mg/dL Total Bilirubin 0.7 (0.2-1.3) mg/dL AST 44 (17-59) U/L ALT 38 (4-49) U/L Alkaline Phosphatase 45 (38-126) U/L Troponin I <0.012 (0.000-0.034) ng/mL Total Protein 7.1 (6.3-8.2) g/dL Albumin 4.6 (3.5-5.0) g/dL Amylase 64 (30-110) U/L Lipase 277 (23-300) U/L Urine Color Urine Appearance (Clear) Urine pH (5.0-8.0) Ur Specific [place] (1.001-1.035) Urine Protein (Negative) Urine Glucose (UA) (Negative) Urine Ketones (Negative) Urine Blood (Negative) Urine Nitrite (Negative) Urine Bilirubin (Negative) Urine Urobilinogen (<2.0) mg/dL Ur Leukocyte Esterase (Negative) Disposition Clinical Impression: Abdominal pain Disposition: HOME SELF-CARE Condition: Good Instructions (If sedation given, give patient instructions): Abdominal Pain (ED) Additional Instructions: Follow-up with your PCP. Report back to ER with any new or worsening symptoms. Your gallbladder was dilated on today's CAT scan, clinically the suspicion for any kind of gallbladder etiology is quite low given your presentation and labs, however it is important to follow closely with your PCP regarding this matter. Prescriptions: Omeprazole 20 mg PO DAILY #20 tab Is patient prescribed a controlled substance at d/c from ED?: No Referrals: Aravind Guevara MD [Primary Care Provider] - 1-2 days Time of Disposition: 03:28
--- NOTE | 2024-03-13 03:17 | CT ---
EXAM: CT Abdomen and Pelvis With Intravenous Contrast CLINICAL HISTORY: CT Reason: LUQ abdominal pain TECHNIQUE: Axial computed tomography images of the abdomen and pelvis with intravenous contrast. CTDI is 24.6 mGy and DLP is 1260.8 mGy-cm. This CT exam was performed using one or more of the following dose reduction techniques: automated exposure control, adjustment of the mA and/or kV according to patient size, and/or use of iterative reconstruction technique. COMPARISON: No relevant prior studies available. FINDINGS: Lung bases: Unremarkable. No mass. No consolidation. ABDOMEN: Liver: Unremarkable. No mass. Gallbladder and bile ducts: The gallbladder is dilated measuring 6.6 cm transverse diameter. No calcified gallstones are identified. There are multiple small foci of calcification in the wall of the gallbladder. No surrounding inflammation, biliary duct dilation, or choledocholithiasis is seen. Pancreas: Unremarkable. No mass. No ductal dilation. Spleen: Unremarkable. No splenomegaly. Adrenals: Unremarkable. No mass. Kidneys and ureters: Delayed images show normal renal contrast excretion bilaterally. No hydronephrosis. Stomach and bowel: Unremarkable. No obstruction. No mucosal thickening. PELVIS: Appendix: The appendix is normal. Bowel loops are nondilated. No acute inflammatory changes are seen involving the bowel. Bladder: Unremarkable. No mass. Reproductive: Unremarkable as visualized. ABDOMEN and PELVIS: Intraperitoneal space: Unremarkable. No free air. No significant fluid collection. Bones/joints: No acute fracture. No dislocation. Soft tissues: Unremarkable. Vasculature: The abdominal aorta is slightly calcified but nondilated. There is no aneurysm or dissection. Lymph nodes: Unremarkable. No enlarged lymph nodes. IMPRESSION: 1. The gallbladder is dilated measuring 6.6 cm transverse diameter. No calcified gallstones are identified. There are multiple small foci of calcification in the wall of the gallbladder. No surrounding inflammation, biliary duct dilation, or choledocholithiasis is seen. If there is concern for cholecystitis, consider ultrasound for further characterization. 2. The appendix is normal. Bowel loops are nondilated. No acute inflammatory changes are seen involving the bowel.
[2024-03-13] MEDS: PANTOPRAZOLE 40 MG TABLET PO STA (03:32)
[2024-03-13 04:15] VITALS: BP 148/80; PULSE 77
== END 2024-03-13 03:38 | disposition home or self-care (01) ==
LOC: EC 22:38
DX: R10.12 Left upper quadrant pain (principal); F12.90 Cannabis use, unspecified, uncomplicated; Z87.891 Personal history of nicotine dependence; Z88.0 Allergy status to penicillin
CPT/HCPCS: 36415; 74177; 80053; 81003; 82150; 83605; 83690; 84484; 85025; 85610; 85730; 93005; 96360; 96361; 99284